=== PATIENT | female | born 1965 ===

== ENCOUNTER → 2020-12-08 10:57 | Outpatient (BNVA) | payer MEDICAID, SELFPAY | PROVIDERS: PCP Internal Medicine; Visit Provider Internal Medicine Cardiovascular Disease | DX: I73.9 Peripheral vascular disease, unspecified (principal); I25.10 Atherosclerotic heart disease of native coronary artery without angina pectoris | CPT/HCPCS: 93005; 99212 ==

== ENCOUNTER → 2020-12-15 09:16 | Outpatient (REF) | payer MEDICAID, SELFPAY ==
--- NOTE | ~2020-12-15 | NM_ITS ---
Exercise Myocardial perfusion study Indication: Atherosclerotic cardiovascular disease to evaluate for myocardial ischemia Technique: The patient was brought in for an exercise perfusion study on 12/15/2020. Patient performed exercise as per Eladio protocol and was injected 25 mCi of sestamibi was given intravenously one target HR was achieved. Images were obtained using the SPECT gamma camera interlaced with the gating device. Images were obtained in supine position. Resting perfusion study was performed on 12/16/2020. Patient was administered 25 mCi of sestamibi intravenously at rest. Images were then obtained in supine position. Images obtained with and without CT attenuation. Total DLP 95 mGy-cm. Images were processed with the software and compared side to side in short axis, horizontal long axis and vertical long axis views. Findings: The stress perfusion study showed non attenuated images show mildly reduced uptake in the septum of the LV myocardium. Remainder of the LV myocardium normally perfused. Suggestion of left ventricle hypertrophy. Attenuation corrected images show mildly reduced uptake in the septum and moderately reduced uptake in the distal septum of the LV myocardium. Remainder of the LV myocardium is normally perfused.. The gated study shows normal LV systolic function with calculated LVEF of 70%. LV cavity is normal in size. The gated study shows normal systolic wall thickening and contraction of all segments. There is no transient ischemic dilation. Resting study shows no change in perfusion compared with stress perfusion study. Gating at rest reveals normal cyst folic wall motion with ejection fraction at 73%. The findings are consistent with no reversible defect suggestive of ischemia.. NM/NM cardiolite stress test Impression: 1. Likely normal myocardial perfusion 2. Gated LVEF is 70% 3. Transient ischemic dilatation not present Stress EKG is equivocal for ischemia
--- NOTE | 2020-12-15 09:30 | CA_ITS ---
Acquisition Time: 2020-12-15 09:31:47 Total Exercise Time: 00:05:32 Test Indications: CAD, SD Medications: Protocol: MICHELLE Max HR: 131 BPM 79% of Pred: 165 BPM Max BP: 116/060 mmHG Max Work Load: 7.0 METS Exercise stress nuclear with Michelle protocol, total of 5 min 32 sec, METS 7.0 TAPHR up to 79 %. ( attenuated by betablocker). Pt denies any anginal sx. EKG with no arrhythmias, no ischemic changes seen during exercise or in recovery, however pt's HR attenuated by betablocker. Nuclear images to follow. Normotensive response to Exercise. Test reviewed with Dr. Montgomery. Referred By: Mathew Titus Overread By: Rox Newby NP
== END ==
LOC: HO.CARD 09:16
PROVIDERS: PCP Internal Medicine; Visit Provider Internal Medicine Cardiovascular Disease
DX: I25.10 Atherosclerotic heart disease of native coronary artery without angina pectoris (principal)
CPT/HCPCS: 78452; 93016; 93017; 93018; A9500

== ENCOUNTER 2020-12-20 13:35 | Outpatient (REF) | payer MEDICAID, SELFPAY ==
--- NOTE | ~2020-12-20 | US_ITS ---
EXAMINATION: NONINVASIVE ASSESSMENT OF THE ARTERIES OF BOTH LOWER EXTREMITIES INCLUDING DREAD AND PVR EXAM CLINICAL INFORMATION: Peripheral vascular disease unspecified COMPARISON: None TECHNIQUE: Ankle pulse volume recordings, ankle pressure measurements and ankle brachial indices were obtained of the lower extremity arterial system bilaterally. The study was performed only at rest. FINDINGS: RIGHT LEG 1. Right Ankle-Brachial Index: 1.09 >0.97-1.25 = normal - no significant arterial disease 0.75-0.96 = mild peripheral arterial disease 0.5-0.74 = moderate peripheral arterial disease <0.50 = severe peripheral arterial disease <0.30 = critical arterial disease 2. Segmental Pressures (mmHg): Ankle: PT 125, DP 119 3. PVR Waveforms: Ankle: Normal LEFT LE. Left Ankle-Brachial Index: 0.98 (higher of the DP/PT) >0.97-1.25 = normal - no significant arterial disease 0.75-0.96 = mild peripheral arterial disease 0.5-0.74 = moderate peripheral arterial disease <0.50 = severe peripheral arterial disease <0.30 = critical arterial disease 2. Segmental Pressures: Ankle: PT 112, DP 113 3. PVR Waveforms: Ankle: Normal US/US DREAD complete IMPRESSION: Normal bilateral ankle brachial indices and PVR waveforms.
== END 2020-12-20 13:36 | disposition home or self-care (01) ==
LOC: HO.US 13:35
PROVIDERS: PCP Internal Medicine; Visit Provider Internal Medicine Cardiovascular Disease
DX: I73.9 Peripheral vascular disease, unspecified (principal)
CPT/HCPCS: 93923

== ENCOUNTER → 2020-12-22 12:29 | Outpatient (BNVA) | payer MEDICAID, SELFPAY | PROVIDERS: PCP Internal Medicine; Visit Provider Internal Medicine Cardiovascular Disease | DX: R09.89 Other specified symptoms and signs involving the circulatory and respiratory systems (principal); I25.10 Atherosclerotic heart disease of native coronary artery without angina pectoris; I73.9 Peripheral vascular disease, unspecified | CPT/HCPCS: 99212 ==

== ENCOUNTER 2021-01-26 13:14 | Outpatient (REF) | payer MEDICAID, SELFPAY ==
--- NOTE | ~2021-01-26 | US_ITS ---
EXAMINATION: US EXTRACRANIAL CAROTID DUPLEX, BILATERAL CLINICAL INFORMATION: Carotid bruit COMPARISON: None TECHNIQUE: Real-time ultrasound and Doppler techniques (integrating B-mode 2-D vascular images, Doppler spectral analysis and color-flow Doppler imaging) were utilized to interrogate the extracranial carotid arteries, the vertebral arteries and proximal subclavian arteries bilaterally. The degree of stenosis is determined by criteria similar to NASCET. FINDINGS: Right Side: 1. There is no atherosclerotic plaque seen in the bifurcation/proximal ICA region. 2. The common carotid artery PSV proximally is 92 cm/s and distally 98 cm/s. 3. The proximal internal carotid artery velocities are 90 cm/s systolic and 34 cm/s diastolic. 4. The proximal external carotid artery PSV is 80 cm/s. 5. The vertebral artery shows antegrade flow. 6. The subclavian artery waveforms are normal. Left Side: 1. There is mild calcified atherosclerotic plaque seen in the bifurcation/proximal ICA region. 2. The common carotid artery PSV proximally is 96 cm/s and distally 100 cm/s. 3. The proximal internal carotid artery velocities are 60 cm/s systolic and 22 cm/s diastolic. 4. The proximal external carotid artery PSV is 139 cm/s. 5. The vertebral artery shows antegrade flow. 6. The subclavian artery waveforms are normal. US/US carotid duplex BI IMPRESSION: 1. RIGHT: Normal right internal carotid artery without atherosclerotic plaque or hemodynamically significant stenosis. 2. LEFT: Minimal, non-hemodynamically significant stenosis of the proximal left internal carotid artery corresponding to a 0-49% stenosis by velocity criteria.
== END 2021-01-26 13:15 | disposition home or self-care (01) ==
LOC: HO.US 13:14
PROVIDERS: PCP Internal Medicine; Visit Provider Internal Medicine
DX: R09.89 Other specified symptoms and signs involving the circulatory and respiratory systems (principal)
CPT/HCPCS: 93880

== ENCOUNTER → 2021-05-15 14:03 | Outpatient (BNVA) | payer MEDICAID, SELFPAY | PROVIDERS: PCP Internal Medicine; Referring Provider Internal Medicine; Visit Provider Internal Medicine Cardiovascular Disease | DX: I65.29 Occlusion and stenosis of unspecified carotid artery (principal); I25.10 Atherosclerotic heart disease of native coronary artery without angina pectoris | CPT/HCPCS: 99212 ==

== ENCOUNTER → 2021-08-07 13:34 | Outpatient (BNVA) | payer MEDICAID, SELFPAY | PROVIDERS: PCP Internal Medicine; Referring Provider Internal Medicine; Visit Provider Internal Medicine Cardiovascular Disease | DX: I25.10 Atherosclerotic heart disease of native coronary artery without angina pectoris (principal); R06.00 Dyspnea, unspecified; I25.2 Old myocardial infarction; F17.200 Nicotine dependence, unspecified, uncomplicated; Z71.6 Tobacco abuse counseling; Z95.818 Presence of other cardiac implants and grafts; Z79.82 Long term (current) use of aspirin | CPT/HCPCS: 93005; 99212 ==

== ENCOUNTER 2021-11-22 15:13 | Outpatient (REF) | payer MEDICAID, SELFPAY ==
--- NOTE | ~2021-11-22 | MM_ITS ---
EXAMINATION: MM SCREENING DIGITAL BREAST TOMOSYNTHESIS, BILATERAL CLINICAL INFORMATION: Screening. Asymptomatic. The lifetime risk of breast cancer based on the Tyrer-Cuzick Model is 16%. COMPARISON: Mammography: 11/27/2019 TECHNIQUE: Digital breast tomosynthesis is performed in both the craniocaudal and mediolateral oblique views along with computer-aided detection (CAD). Synthesized 2D images are generated from the tomosynthesis. FINDINGS: There are scattered areas of fibroglandular density (ACR BI-RADS breast composition Category b). There are no significant masses, abnormal calcifications, or other abnormalities. Parenchymal pattern is similar to prior studies. There are no significant changes. MM/MM tomosynthesis screening BI IMPRESSION: No mammographic evidence of malignancy. ASSESSMENT: BI-RADS 1: Negative RECOMMENDATION: Routine annual mammography screening. This patient's information was entered into a reminder system with a target due date for their next mammogram.
== END 2021-11-22 15:14 | disposition home or self-care (01) ==
LOC: HO.MAMMO 15:13
PROVIDERS: PCP Internal Medicine; Visit Provider Internal Medicine
DX: Z12.31 Encounter for screening mammogram for malignant neoplasm of breast (principal)
CPT/HCPCS: 77063; 77067

== ENCOUNTER 2021-12-04 15:53 | Outpatient (REF) | payer MEDICAID, SELFPAY ==
--- NOTE | 2021-12-04 17:32 | PFT_ITS ---
FLOWS: FEV1 70% of predicted at 1.85 L. FVC 64% of predicted at 2.14 L. FEV1 to FVC ratio of 0.86. No bronchodilator response. LUNG VOLUMES: Total lung capacity 67% of predicted at 3.41 L. Residual volume 64% of predicted at 1.25 L. Slow vital capacity 69% of predicted at 2.16 L. Expiratory reserve volume 68% of predicted at 0.64 L. Diffusion capacity is mildly decreased. IMPRESSION: Moderate restrictive ventilatory defect with no bronchodilator response. Decreased diffusion capacity suggests emphysema. Martin Whitney MD AP/MODL / [id number]
== END 2021-12-04 15:54 | disposition home or self-care (01) ==
LOC: HO.RESP 15:53
PROVIDERS: PCP Internal Medicine; Visit Provider Internal Medicine Cardiovascular Disease
DX: R06.00 Dyspnea, unspecified (principal)
CPT/HCPCS: 94060; 94727; 94729

== ENCOUNTER → 2021-12-07 12:58 | Outpatient (BNVA) | payer MEDICAID, SELFPAY | PROVIDERS: PCP Internal Medicine; Referring Provider Internal Medicine; Visit Provider Internal Medicine Cardiovascular Disease | DX: R06.00 Dyspnea, unspecified (principal); I25.10 Atherosclerotic heart disease of native coronary artery without angina pectoris; I65.29 Occlusion and stenosis of unspecified carotid artery; I25.2 Old myocardial infarction; Z95.5 Presence of coronary angioplasty implant and graft; F17.210 Nicotine dependence, cigarettes, uncomplicated; Z71.6 Tobacco abuse counseling | CPT/HCPCS: 99212 ==

== ENCOUNTER → 2021-12-15 11:13 | Outpatient (BNVA) | payer MEDICAID, SELFPAY | PROVIDERS: PCP Internal Medicine; Visit Provider Internal Medicine Pulmonary Disease | DX: R06.00 Dyspnea, unspecified (principal); J43.9 Emphysema, unspecified | CPT/HCPCS: 99202 ==

== ENCOUNTER → 2022-06-13 12:44 | Outpatient (BNVA) | payer MEDICAID, SELFPAY | PROVIDERS: PCP Internal Medicine; Visit Provider Internal Medicine Cardiovascular Disease | DX: I25.10 Atherosclerotic heart disease of native coronary artery without angina pectoris (principal); I65.29 Occlusion and stenosis of unspecified carotid artery; J43.9 Emphysema, unspecified; Z79.82 Long term (current) use of aspirin | CPT/HCPCS: 93005; 99212 ==

== ENCOUNTER → 2022-07-13 14:04 | Outpatient (BNVA) | payer MEDICAID, SELFPAY | PROVIDERS: PCP Internal Medicine; Visit Provider Internal Medicine Pulmonary Disease | DX: J43.9 Emphysema, unspecified (principal) | CPT/HCPCS: 99212 ==

== ENCOUNTER → 2022-12-10 14:36 | Outpatient (BNVA) | payer MEDICAID, SELFPAY | PROVIDERS: PCP Internal Medicine; Referring Provider Internal Medicine; Visit Provider Internal Medicine Cardiovascular Disease | DX: I20.8 Other forms of angina pectoris (principal); I65.29 Occlusion and stenosis of unspecified carotid artery; I73.9 Peripheral vascular disease, unspecified | CPT/HCPCS: 93005; 99212 ==

== ENCOUNTER 2023-06-04 08:59 | Outpatient (REF) | payer MEDICAID, SELFPAY ==
[2023-06-04 14:29] LABS: MANUAL DIFF FLAG NO
[2023-06-04 14:36] LABS: Basophils Percent Auto 0.3 % (0-2); Eosinophils Absolute Auto 0.3 X10*3/uL (0.0-0.4); Eosinophils Percent Auto 2.9 % (0-4); Hematocrit 50.7 % (37.0-47.0); Hemoglobin 16.3 g/dl (12.0-16.0); Imm Gran Abs Auto 0.02 X10*3/uL (0.00-0.03); Imm Gran Pct Auto 0.2 % (0.0-0.4); Lymphocytes Absolute Auto 2.2 X10*3/uL (1.2-4.9); Lymphocytes Percent Auto 21.9 % (20-40); Mean Corpuscular HGB Conc 32.1 g/dl (31.0-35.0); Mean Corpuscular Hemoglobin 28.4 pg (27.0-33.0); Mean Corpuscular Volume 88.3 fL (80.0-98.0); Mean Platelet Volume 9.7 fL (9.4-12.3); Monocytes Absolute Auto 0.4 X10*3/uL (0.1-1.2); Monocytes Percent Auto 4.4 % (2-11); Neutrophils Percent Auto 70.3 % (45-73); Platelet Count 188 X10*3/uL (160-400); Red Blood Count 5.74 X10*6/uL (4.20-5.50); Red Cell Distribution Width 14.5 % (11.0-16.0)
[2023-06-04 15:01] LABS: Estimated Average Glucose 151 mg/dL; Hemoglobin A1c % 6.9 % (<6.0)
[2023-06-04 16:09] LABS: Alanine Aminotransferase 70 U/L (0-31); Albumin Level 4.4 g/dL (3.5-5.0); Alkaline Phosphatase 102 U/L (39-117); Anion Gap 12 (12-20); Aspartate Amino Transferase 39 U/L (5-31); Bilirubin Total 0.7 mg/dL (0.0-1.0); Blood Urea Nitrogen 12 mg/dL (9-16); Calcium 9.9 mg/dL (8.4-10.2); Carbon Dioxide 25 mmol/L (22-29); Chloride 107 mmol/L (96-108); Cholesterol 124 mg/dL (<200); Estimated Glomerular Filt Rate > 60; Glucose Fasting 153 mg/dL (60-99); HDL Cholesterol 41 mg/dL (>40); LDL Cholesterol Calculated 49 mg/dL (<100); Potassium 4.1 mmol/L (3.3-5.1); Sodium 140 mmol/L (135-145); Triglycerides 171 mg/dL (<150)
== END 2023-06-04 09:00 | disposition home or self-care (01) ==
LOC: HO.CHCLDS 08:59
PROVIDERS: Visit Provider Internal Medicine
DX: E11.59 Type 2 diabetes mellitus with other circulatory complications (principal); Z79.4 Long term (current) use of insulin
CPT/HCPCS: 36415; 80053; 80061; 82043; 82570; 83036; 85025

== ENCOUNTER → 2023-06-18 14:45 | Outpatient (BNV) | payer MEDICAID, SELFPAY | PROVIDERS: Visit Provider Radiology Diagnostic Radiology | DX: Z12.31 Encounter for screening mammogram for malignant neoplasm of breast (principal) | CPT/HCPCS: 77063; 77067 ==

== ENCOUNTER 2023-06-18 14:49 | Outpatient (REF) | payer MEDICAID, SELFPAY | END 2023-06-18 14:50 | disposition home or self-care (01) | LOC: HO.MAMMO 14:49 | PROVIDERS: Visit Provider Internal Medicine | DX: Z12.31 Encounter for screening mammogram for malignant neoplasm of breast (principal) | CPT/HCPCS: 77063; 77067 ==

== ENCOUNTER 2023-08-14 09:29 | Outpatient (AMB) | payer MEDICAID, SELFPAY ==
--- NOTE | 2023-08-14 09:44 | MHC.OFFVIS ---
Intake Vital Signs 08/14/23 09:46 Height 5 ft 4 in Weight 139 lb 5.314 oz BMI 23.9 BP 130/70 Blood Pressure Location Lt brachial Position Sitting Pulse 79 Pulse Source Pulse Oximeter Intake Visit Reasons: F/U Intake Note: f/u feels good Barn Manager Required: Yes Barn Manager Name: caren/cesar Accompanied by: Self / Same As Patient Allergies nuts Allergy (Unknown, Uncoded 12/10/22 14:48) anaphylaxis Seafood Allergy (Unknown, Uncoded 12/10/22 14:48) anaphylaxis Medication List - Last Reconciled 08/14/23 by Mathew Titus MD aspirin (Adult Low Dose Aspirin) 81 mg PO DAILY cholecalciferol (vitamin D3) 25 mcg PO DAILY cholecalciferol (vitamin D3) 25 mcg PO QAM dulaglutide (Trulicity) mg subcut QWEEK empagliflozin (Jardiance) 25 mg PO DAILY gabapentin 600 mg PO TID insulin glargine (Lantus Solostar U-100 Insulin) 10 units subcut BEDTIME insulin lispro (Humalog KwikPen (U-100) Insulin) 28 units subcut TID lancets (TRUEplus Lancets) As directed losartan 25 mg PO DAILY metoprolol tartrate 50 mg PO BID omeprazole 20 mg PO DAILY rosuvastatin 40 mg PO DAILY ticagrelor (Brilinta) 90 mg PO BID umeclidinium 62.5 mcg/actuation (Incruse Ellipta) 1 inh inhalation DAILY HPI HPI Comments History of Present Illness Details Pleasant 57-year-old female here for follow-up. She was seen after she presented to us from [place] where she had anterior wall DE. She was treated with drug-eluting stent. She was doing fine. She had echocardiography which showed normal ejection fraction but basal inferior inferolateral wall were hypokinetic. She is denying any chest discomfort shortness of breath. She is not physically active and does not do any exercise of physical activities. No bleeding issues. She is complaining of leg pain when she walks. Previously she was given pentoxifylline which she has stop. She said this medication was given for ?leg blockages. Old records reviewed as below: 07/13/2019 she underwent cardiac catheterization for anterior ST-elevation DE in [place]. She had a 3.5 x 24 mm synergy drug-eluting stent placed in the proximal left anterior descending artery. Reviewing the angiogram there was nothing mention about other blood vessels in the report sent. She was referred for ankle-brachial index which did not show any abnormality. She also had underwent exercise stress test where she was able to achieve 7 metabolic equivalents workload without symptoms or EKG changes. She underwent carotid duplex because she has carotid bruit. This showed 0-49% stenosis on the left side which was minimal. Right carotid was normal. She continues to smoke. We discussed about stopping smoking because she is complaining of some dyspnea on exertion off and on. She is smoking some cigarettes daily but she is saying is quite variable and depends the stress level. She was referred for PFTs which showed moderate restrictive lung disease as well as emphysema. On follow-up today she is complaining of left flank pain this is exertional and sounds like claudication. On last visit she said that she has stopped using Brilinta but now on follow-up is saying that she never started and has been taking regularly. She has stable angina currently. 08/14/2023: She returns for follow-up. She is going to get eye surgery and dental work. She may need extraction of her too. She is here to. Past whether she can stop Brilinta. She has been on Brilinta for long time and was continued mainly because she has peripheral vascular disease. She can stop the Brilinta for good. I have advised her not to stop the aspirin in the perioperative period unless absolutely necessary she is denying any other symptoms currently. Blood pressure control is good. [facility] Surgical History H/O tubal ligation History of appendectomy Family History Father Diabetes CVD (cardiovascular disease) Mother CVD (cardiovascular disease) HTN (hypertension) Stroke Social History Alcohol intake: former Patient Tobacco Use Status: Current everyday Tobacco user Cigarette Packs Per Day: 0.5 Cigarettes Per Day: 10 Years Smoked: 30 +/- Review of Systems Const Denies chills, Denies fatigue, Denies fever(s), Denies frequent falls, Denies weakness, Denies weight gain and Denies weight loss ENT Denies dizziness Card Denies chest pain, Denies leg edema, Denies lightheadedness, Denies palpitations, Denies dyspnea, Denies dyspnea on exertion, Denies orthopnea and Denies other (loss of consciousness) Resp Denies cough, Denies dyspnea and Denies dyspnea on exertion GI Denies hematochezia and Denies change in stool character Musc Denies abnormal gait, Denies muscle weakness, Denies numbness, Denies radiating pain into limb and Denies tingling Neuro Denies abnormal gait, Denies dizziness, Denies frequent falls, Denies numbness, Denies tingling and Denies weakness Endo Denies fatigue and Denies palpitations Physical Exam Vital Signs: Last Vital Signs Pulse 79 08/14/23 09:46 BP 130/70 08/14/23 09:46 BMI result Body Mass Index 23.9 GENERAL APPEARANCE: in no acute distress, well developed, well nourished. NECK/THYROID: Left carotid bruit, no jugular venous distention. SKIN: no suspicious lesions, warm and dry. HEART: no murmurs, regular rate and rhythm, S1, S2 normal. LUNGS: clear to auscultation bilaterally. ABDOMEN: normal, bowel sounds present, soft, nontender, nondistended. EXTREMITIES: no clubbing, cyanosis, or edema. PERIPHERAL PULSES: equal. NEUROLOGIC: nonfocal, alert and oriented. PSYCH: mood/affect full range. Assessment & Plan Assessment & Plan (1) Stable angina: Code(s): I20.8 - Other forms of angina pectoris (2) Carotid artery stenosis: Code(s): I65.29 - Occlusion and stenosis of unspecified carotid artery (3) Claudication: Comment: She is complaining of leg claudication. She has known history of coronary disease. She is a former smoker. Code(s): I73.9 - Peripheral vascular disease, unspecified Plan 58-year-old female who has peripheral vascular disease and coronary artery disease. Previous LAD stent which was in 2019. She has been on aspirin and Brilinta all along because of peripheral vascular disease. She can stop the Brilinta at this stage. She should continue aspirin on interrupted due to vascular disease. She is intermediate risk for perioperative complications. Ideally she should not stop aspirin for any procedures unless absolutely necessary. Down the line we will consider putting her on Plavix monotherapy as that will be a better option for her given the fact that she has PVD/carotid disease. Thank you for allowing me to participate in the care of your patient. Please feel free to contact me if you have any questions. Coding Level of Care Code Est Pt Level 4 (65856) Diagnoses Stable angina I20.8 Carotid artery stenosis I65.29 Claudication I73.9
[2023-08-14 09:46] VITALS: BP 130/70; PULSE 79; BMI 23.9
== END 2023-08-14 10:11 | disposition home or self-care (01) ==
PROVIDERS: PCP Internal Medicine; Visit Provider Internal Medicine Cardiovascular Disease
DX: I20.8 Other forms of angina pectoris (principal); I65.29 Occlusion and stenosis of unspecified carotid artery; I73.9 Peripheral vascular disease, unspecified
CPT/HCPCS: 99214

== ENCOUNTER → 2023-08-14 09:29 | Outpatient (BNVA) | payer MEDICAID, SELFPAY | PROVIDERS: PCP Internal Medicine; Visit Provider Internal Medicine Cardiovascular Disease | DX: I20.89 Other forms of angina pectoris (principal); I73.9 Peripheral vascular disease, unspecified; I65.29 Occlusion and stenosis of unspecified carotid artery | CPT/HCPCS: 99212 ==

== ENCOUNTER 2024-06-26 08:42 | Outpatient (REF) | payer MEDICAID, SELFPAY ==
[2024-06-26 14:11] LABS: MANUAL DIFF FLAG NO
[2024-06-26 14:16] LABS: Basophils Absolute Auto 0.1 X10*3/uL (0.0-0.2); Basophils Percent Auto 0.4 % (0-2); Eosinophils Absolute Auto 0.3 X10*3/uL (0.0-0.4); Eosinophils Percent Auto 2.7 % (0-4); Hematocrit 43.1 % (37.0-47.0); Hemoglobin 13.8 g/dl (12.0-16.0); Imm Gran Abs Auto 0.03 X10*3/uL (0.00-0.03); Imm Gran Pct Auto 0.3 % (0.0-0.4); Lymphocytes Absolute Auto 2.4 X10*3/uL (1.2-4.9); Mean Corpuscular Hemoglobin 27.3 pg (27.0-33.0); Mean Corpuscular Volume 85.3 fL (80.0-98.0); Mean Platelet Volume 9.5 fL (9.4-12.3); Monocytes Absolute Auto 0.6 X10*3/uL (0.1-1.2); Monocytes Percent Auto 5.1 % (2-11); Neutrophils Percent Auto 70.5 % (45-73); Platelet Count 247 X10*3/uL (160-400); Red Blood Count 5.05 X10*6/uL (4.20-5.50); Red Cell Distribution Width 14.7 % (11.0-16.0); White Blood Count 11.3 X10*3/uL (4.8-10.8)
[2024-06-26 14:38] LABS: Estimated Average Glucose 143 mg/dL; Hemoglobin A1C 159.5434 umol/L; Hemoglobin A1c % 6.6 % (<6.0); Total Hemoglobin (HGBA1C) 3305.9958 umol/L
[2024-06-26 14:45] LABS: Alanine Aminotransferase 27 U/L (0-31); Albumin Level 4.1 g/dL (3.5-5.0); Alkaline Phosphatase 95 U/L (39-117); Anion Gap 9 (12-20); Aspartate Amino Transferase 29 U/L (5-31); Bilirubin Total 0.4 mg/dL (0.0-1.0); Blood Urea Nitrogen 11 mg/dL (9-16); Calcium 9.5 mg/dL (8.4-10.2); Carbon Dioxide 27 mmol/L (22-29); Chloride 109 mmol/L (96-108); Cholesterol 129 mg/dL (<200); Estimated Glomerular Filt Rate > 60; Glucose Random 92 mg/dL (60-115); HDL Cholesterol 42 mg/dL (>40); LDL Cholesterol Calculated 70 mg/dL (<100); Potassium 4.1 mmol/L (3.3-5.1); Sodium 141 mmol/L (135-145); Total Protein 7.4 g/dL (6.5-8.0); Triglycerides 86 mg/dL (<150)
[2024-06-26 14:55] LABS: Creatinine Urine 70.63 mg/dL; Microalbum/Creatinine Ratio Ur 99.1 ug/mg cr (<30)
[2024-06-26 15:03] LABS: TSH reflex Free T4 1.22 uIU/mL (0.32-4.0)
== END 2024-06-26 08:43 | disposition home or self-care (01) ==
LOC: HO.CHCLDS 08:42
PROVIDERS: Visit Provider Internal Medicine
DX: E11.59 Type 2 diabetes mellitus with other circulatory complications (principal); Z79.4 Long term (current) use of insulin
CPT/HCPCS: 36415; 80053; 80061; 82043; 82570; 83036; 84443; 85025

== ENCOUNTER 2024-08-17 12:40 | Outpatient (AMB) | payer MEDICAID, SELFPAY ==
[2024-08-17 12:53] VITALS: BP 130/66; PULSE 85; BMI 24.6
--- NOTE | 2024-08-17 12:53 | MHC.OFFVIS ---
Vital Signs 08/17/24 12:53 Height 5 ft 4 in Weight 143 lb 4.807 oz BMI 24.6 BP 130/66 Blood Pressure Location Lt brachial Position Sitting Pulse 85 Pulse Source Monitor Intake Visit Reasons: 1yr f/up/w ekg Intake Note: 1 yr f/up Preparation Room Manager Required: Yes Preparation Room Manager Language: Industrial Photographer Name: [id number] Accompanied by: Self / Same As Patient Allergies nuts Allergy (Unknown, Uncoded 12/10/22 14:48) anaphylaxis Seafood Allergy (Unknown, Uncoded 12/10/22 14:48) anaphylaxis Medication List - Last Reconciled 08/17/24 by Mathew Titus MD aspirin (Adult Low Dose Aspirin) 81 mg PO DAILY cholecalciferol (vitamin D3) 25 mcg PO DAILY dulaglutide (Trulicity) mg subcut QWEEK empagliflozin (Jardiance) 25 mg PO DAILY gabapentin 600 mg PO TID insulin glargine (Lantus Solostar U-100 Insulin) 10 units subcut BEDTIME lancets (TRUEplus Lancets) As directed losartan 25 mg PO DAILY metoprolol tartrate 50 mg PO BID omeprazole 20 mg PO DAILY rosuvastatin 40 mg PO DAILY ticagrelor 90 mg PO BID umeclidinium 62.5 mcg/actuation (Incruse Ellipta) 1 inh PO DAILY HPI Comments Details: Pleasant 57-year-old female here for follow-up. She was seen after she presented to us from [place] where she had anterior wall ID. She was treated with drug-eluting stent. She was doing fine. She had echocardiography which showed normal ejection fraction but basal inferior inferolateral wall were hypokinetic. She is denying any chest discomfort shortness of breath. She is not physically active and does not do any exercise of physical activities. No bleeding issues. She is complaining of leg pain when she walks. Previously she was given pentoxifylline which she has stop. She said this medication was given for ?leg blockages. Old records reviewed as below: 07/13/2019 she underwent cardiac catheterization for anterior ST-elevation ID in [place]. She had a 3.5 x 24 mm synergy drug-eluting stent placed in the proximal left anterior descending artery. Reviewing the angiogram there was nothing mention about other blood vessels in the report sent. She was referred for ankle-brachial index which did not show any abnormality. She also had underwent exercise stress test where she was able to achieve 7 metabolic equivalents workload without symptoms or EKG changes. She underwent carotid duplex because she has carotid bruit. This showed 0-49% stenosis on the left side which was minimal. Right carotid was normal. She continues to smoke. We discussed about stopping smoking because she is complaining of some dyspnea on exertion off and on. She is smoking some cigarettes daily but she is saying is quite variable and depends the stress level. She was referred for PFTs which showed moderate restrictive lung disease as well as emphysema. On follow-up today she is complaining of left flank pain this is exertional and sounds like claudication. On last visit she said that she has stopped using Brilinta but now on follow-up is saying that she never started and has been taking regularly. She has stable angina currently. 08/14/2023: She returns for follow-up. She is going to get eye surgery and dental work. She may need extraction of her too. She is here to. Past whether she can stop Brilinta. She has been on Brilinta for long time and was continued mainly because she has peripheral vascular disease. She can stop the Brilinta for good. I have advised her not to stop the aspirin in the perioperative period unless absolutely necessary she is denying any other symptoms currently. Blood pressure control is good. 08/17/2024: She is here for follow-up. No chest pain or shortness of breath. She continues to smoke unfortunately. She was advised previously to stop the Brilinta intake aspirin monotherapy. She continues to take aspirin and Brilinta. She has peripheral vascular disease. Unfortunately continues to smoke. [facility] Surgical History H/O tubal ligation History of appendectomy Family History Father Diabetes CVD (cardiovascular disease) Mother CVD (cardiovascular disease) HTN (hypertension) Stroke Social History Alcohol intake: former Patient Tobacco Use Status: Current everyday Tobacco user Cigarette Packs Per Day: 0.5 Cigarettes Per Day: 10 Years Smoked: 30 +/- Review of Systems Const Denies chills, Denies fatigue, Denies fever(s), Denies frequent falls, Denies weakness, Denies weight gain and Denies weight loss ENT Denies dizziness Card Denies chest pain, Denies leg edema, Denies lightheadedness, Denies palpitations, Denies dyspnea and Denies dyspnea on exertion Resp Denies cough, Denies dyspnea and Denies dyspnea on exertion GI Denies hematochezia Musc Denies abnormal gait, Denies muscle weakness, Denies numbness, Denies radiating pain into limb and Denies tingling Neuro Denies abnormal gait, Denies dizziness, Denies frequent falls, Denies numbness, Denies tingling and Denies weakness Endo Denies fatigue and Denies palpitations Physical Exam Vital Signs: Last Vital Signs Pulse 85 08/17/24 12:53 BP 130/66 08/17/24 12:53 BMI result Body Mass Index 24.6 GENERAL APPEARANCE: in no acute distress, well developed, well nourished. NECK/THYROID: Left carotid bruit, no jugular venous distention. SKIN: no suspicious lesions, warm and dry. HEART: no murmurs, regular rate and rhythm, S1, S2 normal. LUNGS: clear to auscultation bilaterally. ABDOMEN: normal, bowel sounds present, soft, nontender, nondistended. EXTREMITIES: no clubbing, cyanosis, or edema. PERIPHERAL PULSES: equal. NEUROLOGIC: nonfocal, alert and oriented. PSYCH: mood/affect full range. Office Procedures EKG Details: Sinus rhythm 85 beats per minute, normal axis, normal ECG, QTC 402 milliseconds. [id number], Complete Assessment & Plan Assessment & Plan (1) Stable angina: Code(s): I20.8 - Other forms of angina pectoris Category: Medical (2) Claudication: Comment: She is complaining of leg claudication. She has known history of coronary disease. She is a former smoker. Code(s): I73.9 - Peripheral vascular disease, unspecified Category: Medical (3) PVD (peripheral vascular disease): Code(s): I73.9 - Peripheral vascular disease, unspecified Category: Medical Plan Pleasant 59 year female who is here for follow-up. She has known history of coronary artery disease with previous LAD PCI. She has been on aspirin and Brilinta and was treated with long-term tab due to known peripheral vascular disease. On last visit we advised her to stop the Brilinta and take aspirin only. She has known peripheral vascular disease with claudication. She also has carotid disease. I have advised her to stop the Brilinta and start Xarelto 2.5 mg twice a day. She will continue the baby aspirin with that. We discussed again about smoking cessation. Follow-up in 6 months. Thank you for allowing me to participate in the care of your patient. Please feel free to contact me if you have any questions. Medications: New rivaroxaban (Xarelto) 2.5 mg PO BID 60 tabs 6RF I73.9 - Peripheral vascular disease, unspecified Coding Level of Care Code Est Pt Level 4 (43054) Diagnoses Stable angina I20.8 Claudication I73.9 PVD (peripheral vascular disease) I73.9 CPT Codes EKG - CPT: 80334-[id number], Complete ([id number])
== END 2024-08-17 13:32 | disposition home or self-care (01) ==
PROVIDERS: PCP Internal Medicine; Visit Provider Internal Medicine Cardiovascular Disease
DX: I20.89 Other forms of angina pectoris (principal); I73.9 Peripheral vascular disease, unspecified
CPT/HCPCS: 93010; 99214

== ENCOUNTER → 2024-08-17 12:40 | Outpatient (BNVA) | payer MEDICAID, SELFPAY | PROVIDERS: PCP Internal Medicine; Visit Provider Internal Medicine Cardiovascular Disease | DX: I20.89 Other forms of angina pectoris (principal); I73.9 Peripheral vascular disease, unspecified; F17.210 Nicotine dependence, cigarettes, uncomplicated | CPT/HCPCS: 93005; 99212 ==

== ENCOUNTER 2025-02-22 08:38 | Outpatient (REF) | payer MEDICAID, SELFPAY ==
--- OUTSIDE RECORDS SUMMARY | 2025-02-22 08:47 | XMS_ITS | Encounter Summary ---
Author Organization [employer] Address [address] [place] [address] 7 [place] [address] Care Team Providers Care Inspector Pawnshop Detail Name Role Phone Dillon Thomson MD Primary Care Prov ider Encounter Details Date Type Department Care Team (Late st Contact Info) Description 01/21/2023 Orders Only [facility] [address] [place] [address] Desiree Shaver LPN Social History Tobacco Use Types Packs/Day Years Used Date Smoking Tobacco: Never Assessed Comments Unknown Sex and Gender Information Value Date Recorded Sex Assigned at Female 07/16/2022 10:36 AM EDT Legal Sex Female 10:36 AM EDT Gender Identity Female 07/16/2022 10:36 AM EDT Sexual Orientation Straight 07/16/2022 10 :36 AM EDT documented as of this encounter Plan of Treatment Upcoming Encounters Date Type Department Care Team (Late st Contact Info) Description 06/07/2025 2:30 PM EDT Office Visit [facility] [address] [place] [address] Dillon Thomson MD [address] [place] [address] documented as of this encounter Procedures Procedure Name Priority Date/Time Associated Diagnosis Comments ALBUMIN, RANDOM URINE W/CREATININE Routine 06/04/2023 9:10 AM EDT COMPREHENSIVE METABOLIC PANEL, FASTING Routine 06/04/2023 9:05 AM EDT documented in this encounter Results * (ABNORMAL) Albumin, Random Urine W/Creatinine (06/04/2023 9:10 AM EDT) Creatinine, Urine 53.80 mg/dL [facility] Microalbumin Urine 49.0 mg/L [facility] Microalbum Creatinine Ratio Ur 91.0(H) <30 ug/mg cr [facility] Comment:Albumin/Creatinine R atio Reference Ranges: Normal: < 30 ug/mg creatinine Microalbuminuria: 30 - 300 ug/mg creatinineClinical Albuminuria: > 300 ug/mg creatinine 06/04/2023 9:10 AM EDT 06/04/2023 2:41 PM EDT us Dillon Sanders MD LAB URINE ORDERABL ES Final Result [facility] [address] [place] [address] [phone] * (ABNORMAL) Comprehensive Metabolic Panel, Fasting (06/04/2023 9:05 AM EDT) Sodium 140 135 - 145 mmol/L [facility] Potassium 4.1 3.3 - 5.1 mmol/L [facility] Chloride 107 96 - 108 mmol/L [facility] Carbon Dioxide 25 22 - 29 mmol/L [facility] Anion Gap 12 12 - 20 [facility] Urea Nitrogen (BUN) 12 9 - 16 mg/dL [facility] Creatinine, Serum 0.69 0.5 - 1.4 mg/dL [facility] Estimated Glomerular Filt Rate >60 [facility] Comment:NOTE: For -Am erican individuals, multiply the result by 1.210.Chronic Kidney Disease: Estimated GFR < 60 mL/min/1.18d0Nlsmms Kidney Disease: Estimated GFR < 15 mL/min/1.73m2 Glucose Fasting 153(H) 60 - 99 mg/dL [facility] Comment:A fasting glucose of 126 mg/dl or greater on more than oneoccasion is considered diagnostic of diabetes. Calcium 9.9 8.4 - 10.2 mg/dL [facility] Bilirubin, Total 0.7 0.0 - 1.0 mg/dL [facility] Aspartate Amino Transferase 39(H) 5 - 31 U/L [facility] Alanine Aminotransferase 70(H) 0 - 31 U/L [facility] Total Protein 8.0 6.5 - 8.0 g/dL [facility] Albumin Level 4.4 3.5 - 5.0 g/dL [facility] Alkaline Phosphatase 102 39 - 117 U/L [facility] 06/04/2023 9:05 AM EDT 06/04/2023 2:20 PM EDT us Dillon Sanders MD LAB BLOOD ORDERABL ES Final Result [facility] [address] [place] [phone] documented in this encounter Visit Diagnoses Not on filedocumented in this encounter Care Teams Inspector Pawnshop Detail Relationship Specialty Start Date End Date Dillon Thomson MD [address] [place] [phone] PCP - General Internal Medicine 10/13/19 Sola Fields Car PusherMacadam Raker 10/22/23 documented as of this encounter
[2025-02-22 14:12] LABS: MANUAL DIFF FLAG NO
[2025-02-22 14:32] LABS: Basophils Absolute Auto 0.1 X10*3/uL (0.0-0.2); Basophils Percent Auto 0.6 % (0-2); Eosinophils Absolute Auto 0.2 X10*3/uL (0.0-0.4); Eosinophils Percent Auto 2.4 % (0-4); Hematocrit 39.4 % (37.0-47.0); Hemoglobin 11.8 g/dl (12.0-16.0); Imm Gran Abs Auto 0.05 X10*3/uL (0.00-0.03); Imm Gran Pct Auto 0.5 % (0.0-0.4); Lymphocytes Absolute Auto 2.6 X10*3/uL (1.2-4.9); Lymphocytes Percent Auto 25.8 % (20-40); Mean Corpuscular HGB Conc 29.9 g/dl (31.0-35.0); Mean Corpuscular Hemoglobin 21.6 pg (27.0-33.0); Mean Platelet Volume 9.2 fL (9.4-12.3); Monocytes Absolute Auto 0.5 X10*3/uL (0.1-1.2); Monocytes Percent Auto 5.2 % (2-11); Neutrophils Absolute Auto 6.6 x10*3/uL (2.0-8.3); Neutrophils Percent Auto 65.5 % (45-73); Platelet Count 336 X10*3/uL (160-400); Red Blood Count 5.47 X10*6/uL (4.20-5.50); Red Cell Distribution Width 18.6 % (11.0-16.0); White Blood Count 10.1 X10*3/uL (4.8-10.8)
[2025-02-22 14:45] LABS: Estimated Average Glucose 197 mg/dL; Hemoglobin A1c % 8.5 % (<6.0)
[2025-02-22 14:55] LABS: Alanine Aminotransferase 33 U/L (0-31); Albumin Level 4.4 g/dL (3.5-5.0); Alkaline Phosphatase 91 U/L (39-117); Anion Gap 11 (12-20); Aspartate Amino Transferase 46 U/L (5-31); Bilirubin Total 0.3 mg/dL (0.0-1.0); Blood Urea Nitrogen 14 mg/dL (9-16); Calcium 9.1 mg/dL (8.4-10.2); Carbon Dioxide 23 mmol/L (22-29); Chloride 105 mmol/L (96-108); Cholesterol 127 mg/dL (<200); Estimated Glomerular Filt Rate > 60; Glucose Random 148 mg/dL (60-115); HDL Cholesterol 36 mg/dL (>40); LDL Cholesterol Calculated 56 mg/dL (<100); Potassium 4.2 mmol/L (3.3-5.1); Sodium 135 mmol/L (135-145); Total Protein 7.8 g/dL (6.5-8.0); Triglycerides 179 mg/dL (<150)
== END 2025-02-22 08:39 | disposition home or self-care (01) ==
LOC: HO.CHCLDS 08:38
PROVIDERS: Visit Provider Internal Medicine
DX: Z79.4 Long term (current) use of insulin (principal); E11.59 Type 2 diabetes mellitus with other circulatory complications
CPT/HCPCS: 36415; 80053; 80061; 83036; 85025

== ENCOUNTER 2025-03-09 14:06 | Outpatient (REF) | payer MEDICAID, SELFPAY ==
--- OUTSIDE RECORDS SUMMARY | 2025-03-09 17:12 | XMS_ITS | Encounter Summary ---
Author Organization [employer] Address [address] [place] [address] 7 [place] [address] Care Team Providers Care District Administrator Name Role Phone Dillon Thomson MD Primary Care Prov ider Encounter Details Date Type Department Care Team (Late st Contact Info) Description 01/21/2023 Orders Only [facility] [address] [place] [address] Desiree Shaver LPN Social History Tobacco Use Types Packs/Day Years Used Date Smoking Tobacco: Never Assessed Comments Unknown Sex and Gender Information Value Date Recorded Sex Assigned at Female 07/16/2022 10:36 AM EDT Legal Sex Female 10:36 AM EDT Gender Identity Female 07/16/2022 10:36 AM EDT Sexual Orientation Choose not to disclose 2024 1:47 PM EDT documented as of this encounter Plan of Treatment Upcoming Encounters Date Type Department Care Team (Late st Contact Info) Description 06/07/2025 2:30 PM EDT Office Visit [facility] [address] [place] [address] Dillon Thomson MD [address] [place] [address] documented as of this encounter Procedures Procedure Name Priority Date/Time Associated Diagnosis Comments ALBUMIN, RANDOM URINE W/CREATININE Routine 06/04/2023 9:10 AM EDT COMPREHENSIVE METABOLIC PANEL, FASTING Routine 06/04/2023 9:05 AM EDT documented in this encounter Results * (ABNORMAL) Albumin, Random Urine W/Creatinine (06/04/2023 9:10 AM EDT) Creatinine, Urine 53.80 mg/dL [facility] Microalbumin Urine 49.0 mg/L [facility] Microalbum Creatinine Ratio Ur 91.0(H) <30 ug/mg cr [facility] Comment:Albumin/Creatinine R atio Reference Ranges: Normal: < 30 ug/mg creatinine Microalbuminuria: 30 - 300 ug/mg creatinineClinical Albuminuria: > 300 ug/mg creatinine 06/04/2023 9:10 AM EDT 06/04/2023 2:41 PM EDT us Dillon Sanders MD LAB URINE ORDERABL ES Final Result [facility] [address] [place] [phone] * (ABNORMAL) Comprehensive Metabolic Panel, Fasting (06/04/2023 9:05 AM EDT) Sodium 140 135 - 145 mmol/L [facility] Potassium 4.1 3.3 - 5.1 mmol/L [facility] Chloride 107 96 - 108 mmol/L [facility] Carbon Dioxide 25 22 - 29 mmol/L [facility] Anion Gap 12 12 - 20 [facility] Urea Nitrogen (BUN) 12 9 - 16 mg/dL [facility] Creatinine, Serum 0.69 0.5 - 1.4 mg/dL [facility] Estimated Glomerular Filt Rate >60 [facility] Comment:NOTE: For -Am erican individuals, multiply the result by 1.210.Chronic Kidney Disease: Estimated GFR < 60 mL/min/1.74g5Ksoonj Kidney Disease: Estimated GFR < 15 mL/min/1.73m2 Glucose Fasting 153(H) 60 - 99 mg/dL [facility] Comment:A fasting glucose of 126 mg/dl or greater on more than oneoccasion is considered diagnostic of diabetes. Calcium 9.9 8.4 - 10.2 mg/dL [facility] Bilirubin, Total 0.7 0.0 - 1.0 mg/dL [facility] Aspartate Amino Transferase 39(H) 5 - 31 U/L [facility] Alanine Aminotransferase 70(H) 0 - 31 U/L [facility] Total Protein 8.0 6.5 - 8.0 g/dL [facility] Albumin Level 4.4 3.5 - 5.0 g/dL [facility] Alkaline Phosphatase 102 39 - 117 U/L [facility] 06/04/2023 9:05 AM EDT 06/04/2023 2:20 PM EDT us Dillon Sanders MD LAB BLOOD ORDERABL ES Final Result [facility] [address] [place] [phone] documented in this encounter Visit Diagnoses Not on filedocumented in this encounter Care Teams District Administrator Relationship Specialty Start Date End Date Dillon Thomson MD [address] [place] [phone] PCP - General Internal Medicine 10/13/19 Sola Fields Tacker Elastic BandProperty Field Adjuster 10/22/23 documented as of this encounter
[2025-03-12 15:02] LABS: HPV Genotype 16 Negative (Negative); HPV Genotype 18 Negative (Negative); HPV High Risk Negative (Negative)
== END 2025-03-09 14:07 | disposition home or self-care (01) ==
LOC: HO.CHCLNP 14:06
PROVIDERS: Visit Provider Family Medicine
DX: Z12.4 Encounter for screening for malignant neoplasm of cervix (principal); N30.01 Acute cystitis with hematuria
CPT/HCPCS: 87086; 87088; 87186; 87626; 88175

== ENCOUNTER 2025-03-26 14:00 | Outpatient (REF) | payer MEDICAID, SELFPAY ==
--- NOTE | ~2025-03-26 | MM_ITS ---
EXAMINATION: MM SCREENING DIGITAL BREAST TOMOSYNTHESIS, BILATERAL CLINICAL INFORMATION: Screening. Asymptomatic. COMPARISON: Mammography: Comparison is made with available priors TECHNIQUE: Digital breast mammography with tomosynthesis is performed in both the craniocaudal and mediolateral oblique views along with computer-aided detection (CAD). FINDINGS: There are scattered areas of fibroglandular density (ACR BI-RADS breast composition Category b). There are no significant masses, abnormal calcifications, or other abnormalities. MM/MM tomosynthesis screening BI IMPRESSION: No mammographic evidence of malignancy. ASSESSMENT: BI-RADS BI-RADS 1 - Negative RECOMMENDATION: Routine annual mammography screening. 1 year F/U This examination should not preclude the clinical evaluation of a suspicious palpable abnormality. This patient's information was entered into a reminder system with a target due date for their next mammogram. Electronically signed by: Naty Valdivia DO 04/09/2025 02:28 PM EDT
--- OUTSIDE RECORDS SUMMARY | 2025-03-26 14:05 | XMS_ITS | Clinical Summary ---
Author Organization [facility] Address [address] [facility] [address] [place] [address] Phone Care Team Providers Care Belt Brander Name Role Phone Dillon Meléndez Primary Care Provider Medications acetaminophen (TYLENOL) 500 MG tablet Take 1 tablet by mouth in the morning and 1 tablet at noon and 1 tablet in the evening and 1 tablet before bedtime. 2 Active Aspirin Adult Low Strength 81 MG EC tablet Take 81 mg by mouth every morning 3 Active cholecalciferol (VITAMIN D-3) 25 MCG (1000 UT) capsule Take 1 tablet by mouth in the morning. 2 Active Dulaglutide (Trulicity) 3 MG/0.5ML solution pen-injector Inject 0.5 mL under the skin every 7 (seven) days 3 Active Empagliflozin (Jardiance) 25 MG tablet Take 25 mg by mouth 1 (one) time each day in the morning 2 Active EPINEPHrine (EPIPEN) 0.3 MG/0.3ML injection syringe 0.3 mg if needed 3 Active gabapentin (NEURONTIN) 600 MG tablet Take 600 mg by mouth in the morning and 600 mg at noon and 600 mg in the evening. 3 Active insulin glargine (Lantus SoloStar) 100 UNIT/ML injection Inject 20 Units under the skin every night 3 Active Insulin Lispro, 1 Unit Dial, 100 UNIT/ML solution pen-injector Inject 5 Units under the skin in the morning and 5 Units at noon and 5 Units in the evening. Inject before meals. 2 Active lidocaine-prilo magi (EMLA) cream Apply topically if needed 1 Active losartan (COZAAR) 25 MG tablet Take 25 mg by mouth every morning 3 Active metoprolol tartrate (LOPRESSOR) 50 MG tablet Take 50 mg by mouth in the morning and 50 mg in the evening. 1 Active omeprazole (PriLOSEC) [address] capsule Take 20 mg by mouth 1 (one) time each day in the morning 3 Active rosuvastatin (CRESTOR) 40 MG tablet Take 40 mg by mouth 1 (one) time each day 3 Active spironolactone (ALDACTONE) 25 MG tablet Take 25 mg by mouth in the morning and 25 mg in the evening. 3 Active Brilinta 90 MG tablet Take 90 mg by mouth in the morning and 90 mg in the evening. 3 Active Incruse Ellipta 62.5 MCG/ACT aerosol powder Inhale 1 puff 1 (one) time each day 3 Active Active Problems Problem Noted Date Diagnosed Date Proteinuria, not otherwise specified 09/19/2023 Diabetes mellitus, not otherwise specified 09/19 Hypertension 09/19/2023 Coronary arteriosclerosis, not otherwise specifi ed 09/19/2023 Resolved Problems Problem Noted Date Diagnosed Date Resolved Date Chronic kidney disease, stage 2 (mild) 09/19/2023 09/19/2023 Social History Tobacco Use Types Packs/Day Years Used Date Smoking Tobacco: Never Assessed Comments Unknown Sex and Gender Information Value Date Recorded Sex Assigned at Not on file Legal Sex Female 8:55 AM EDT Gender Identity Not on file Sexual Orientation Not on file Plan of Treatment Health Maintenance Due Date Last Done Comments Breast Cancer Screening 1965 Hepatitis B Vaccine (1 of 3 - 19+ 3-dose series) 1984 Colorectal Cancer Screening: Annual FOBT 2014 Colorectal Cancer Screening: Colonoscopy 2014 Colorectal Cancer Screening: Sigmoidoscopy 2014 Diabetes: Ophthalmology Exam 07/16/2023 Diabetes: Pedal Pulse Checked 07/16/2023 Diabetes: Sensory Foot Exam 07/16/2023 Diabetes: Visual Foot Exam 07/16/2023 Diabetes: Hemoglobin A1C 09/03/2023 06/04/2023 Influenza Vaccine (#1) 2025 06/10/2023, 2021 Pneumococcal Vaccine: 50+ Years Completed Pneumococcal Vaccine: Peds ( 0 to 5 Years) and At-Risk Patients (6 to 49 Years) Discontinued 06/10/2023 Insurance Medicaid [place] Medicaid [place] Care Teams Belt Brander Relationship Specialty Start Date End Date Dillon Meléndez: [phone] PCP - General Internal Medicine 07/16/23
--- OUTSIDE RECORDS SUMMARY | 2025-03-26 14:05 | XMS_ITS | Encounter Summary ---
Author Organization [employer] Address [address] [place] [address] 7 [place] [address] Care Team Providers Care Production Statistical Clerk Name Role Phone Dillon Thomson MD Primary Care Prov ider Encounter Details Date Type Department Care Team (Late st Contact Info) Description 01/21/2023 Orders Only [facility] [address] [place] [address] Desiree Shaver LPN Social History Tobacco Use [...] Description 06/07/2025 2:30 PM EDT Office Visit [facility] [address] [place] [address] Dillon Thomson MD [address] [place] [address] documented as of this encounter Procedures Procedure Name Priority Date/Time Associated Diagnosis Comments ALBUMIN, RANDOM URINE W/CREATININE Routine 06/04/2023 9:10 AM EDT COMPREHENSIVE METABOLIC PANEL, FASTING Routine 06/04/2023 9:05 AM EDT documented in this encounter Results * (ABNORMAL) Albumin, Random Urine W/Creatinine (06/04/2023 9:10 AM EDT) Creatinine, Urine 53.80 mg/dL [facility] Microalbumin Urine 49.0 mg/L [facility] Microalbum Creatinine Ratio Ur 91.0(H) <30 ug/mg cr [facility] Comment:Albumin/Creatinine R atio Reference Ranges: Normal: < 30 ug/mg creatinine Microalbuminuria: 30 - 300 ug/mg creatinineClinical Albuminuria: > 300 ug/mg creatinine 06/04/2023 9:10 AM EDT 06/04/2023 2:41 PM EDT us Dillon Sanders MD LAB URINE ORDERABL ES Final Result [facility] [address] [place] [phone] * (ABNORMAL) Comprehensive Metabolic Panel, Fasting (06/04/2023 9:05 AM EDT) Sodium 140 135 - 145 mmol/L [facility] Potassium 4.1 3.3 - 5.1 mmol/L [facility] Chloride 107 96 - 108 mmol/L [facility] Carbon Dioxide 25 22 - 29 mmol/L [facility] Anion Gap 12 12 - 20 [facility] Urea Nitrogen (BUN) 12 9 - 16 mg/dL [facility] Creatinine, Serum 0.69 0.5 - 1.4 mg/dL [facility] Estimated Glomerular Filt Rate >60 [facility] Comment:NOTE: For -Am erican individuals, multiply the result by 1.210.Chronic Kidney Disease: Estimated GFR < 60 mL/min/1.43s3Mppsve Kidney Disease: Estimated GFR < 15 mL/min/1.73m2 Glucose Fasting 153(H) 60 - 99 mg/dL [facility] Comment:A fasting glucose of 126 mg/dl or greater on more than oneoccasion is considered diagnostic of diabetes. Calcium 9.9 8.4 - 10.2 mg/dL [facility] Bilirubin, Total 0.7 0.0 - 1.0 mg/dL [facility] Aspartate Amino Transferase 39(H) 5 - 31 U/L [facility] Alanine Aminotransferase 70(H) 0 - 31 U/L [facility] Total Protein 8.0 6.5 - 8.0 g/dL [facility] Albumin Level 4.4 3.5 - 5.0 g/dL [facility] Alkaline Phosphatase 102 39 - 117 U/L [facility] 06/04/2023 9:05 AM EDT 06/04/2023 2:20 PM EDT us Dillon Sanders MD LAB BLOOD ORDERABL ES Final Result [facility] [address] [place] [phone] documented in this encounter Visit Diagnoses Not on filedocumented in this encounter Care Teams Production Statistical Clerk Relationship Specialty Start Date End Date Dillon Thomson MD [address] [place] [phone] PCP - General Internal Medicine 10/13/19 Sola Fields Stamp AnalystBlade Boner 10/22/23 documented as of this encounter
== END 2025-03-26 14:01 | disposition home or self-care (01) ==
LOC: HO.MAMMO 14:00
PROVIDERS: Visit Provider Internal Medicine
DX: Z12.31 Encounter for screening mammogram for malignant neoplasm of breast (principal)
CPT/HCPCS: 77063; 77067

== ENCOUNTER → 2025-03-26 14:30 | Outpatient (BNV) | payer MEDICAID, SELFPAY | PROVIDERS: Visit Provider Internal Medicine | DX: Z12.31 Encounter for screening mammogram for malignant neoplasm of breast (principal) | CPT/HCPCS: 77063; 77067 ==

== ENCOUNTER 2025-09-07 12:23 | Outpatient (AMB) | payer MEDICAID, SELFPAY ==
--- NOTE | 2025-09-07 12:49 | MHC.OFFVIS ---
Vital Signs 09/07/25 12:50 Height 5 ft 4 in Weight 141 lb 1.533 oz BMI 24.2 BP 120/52 L Blood Pressure Location Lt brachial Position Sitting Pulse 90 Pulse Source Monitor Intake Visit Reasons: r/s 6 mth f/up Tracer Powder Blender Required: Yes Tracer Powder Blender Language: Sugar [place] Manager Name: linn [id number] nelsin Allergies nuts Allergy (Unknown, Uncoded 09/07/25 12:55) anaphylaxis Seafood Allergy (Unknown, Uncoded 09/07/25 12:55) anaphylaxis Medication List - Last Reconciled 09/07/25 by RAFAELA Pacheco aspirin (Adult Low Dose Aspirin) 81 mg PO DAILY cholecalciferol (vitamin D3) 25 mcg PO DAILY dulaglutide (Trulicity) mg subcut QWEEK empagliflozin (Jardiance) 25 mg PO DAILY gabapentin 600 mg PO TID insulin glargine (Lantus Solostar U-100 Insulin) 10 units subcut BEDTIME lancets (TRUEplus Lancets) As directed losartan 25 mg PO DAILY metoprolol tartrate 50 mg PO BID omeprazole 20 mg PO DAILY rivaroxaban (Xarelto) 2.5 mg PO BID 30 days rosuvastatin 40 mg PO DAILY umeclidinium 62.5 mcg/actuation (Incruse Ellipta) 1 inh PO DAILY HPI HPI r/s 6 mth f/up: Details: The patient is a 60 year old female presenting for a follow-up visit for coronary artery disease. Her history is significant for an anterior ST-elevation myocardial infarction with percutaneous coronary intervention of the left anterior descending artery on 07/13/2019. Her last echocardiogram 04/15/2020 showed normal EF, impaired relaxation, wall motion abnormality suggesting CAD, no valve abnormalities. Her past medical history also includes peripheral vascular disease with claudication, which occurs with long-distance walking but has not worsened. She also has a history of hyperlipidemia, diabetes, mild left carotid stenosis, and COPD. She is a current smoker but has reduced her cigarette use to 5-6 per day. She denies any chest pain, shortness of breath, or palpitations over the last year. Her current cardiac medications include aspirin, losartan, metoprolol, and rosuvastatin. Her physical activity is limited, though she climbs 15 steps at home, which causes fatigue but no chest discomfort or dyspnea. [facility] Surgical History H/O tubal ligation History of appendectomy Family History Father Diabetes CVD (cardiovascular disease) Mother CVD (cardiovascular disease) HTN (hypertension) Stroke Social History Alcohol intake: former Patient Tobacco Use Status: Current everyday Tobacco user Cigarette Packs Per Day: 0.5 Cigarettes Per Day: 10 Years Smoked: 30 +/- Review of Systems ENT Reports dizziness Card Denies chest pain, Denies chest pain at rest, Denies chest pain with activity, Denies rapid heart rate, Denies pedal edema, Denies edema, Denies leg edema, Denies lightheadedness, Denies palpitations, Denies dyspnea, Denies dyspnea on exertion and Denies orthopnea Resp Denies cough, Denies dyspnea and Denies dyspnea on exertion GI Denies hematochezia and Denies change in stool character Musc Denies abnormal gait, Reports limited range of motion, Reports muscle cramps, Denies muscle weakness, Denies numbness, Denies radiating pain into limb, Denies stiffness and Denies tingling Neuro Denies abnormal gait, Reports dizziness, Denies numbness and Denies tingling Endo Denies palpitations Physical Exam Vital Signs: BMI result Body Mass Index 24.2 Const General: cooperative, healthy appearing, comfortable and no acute distress Orientation/consciousness: patient oriented x3 Neck Neck: Yes normal visual inspection Resp Effort & Inspection: normal respiratory effort Auscultation: clear to auscultation bilaterally, no rales, no rhonchi and no wheezes Cardio Jugular venous distension: no JVD Rate: regular rate Rhythm: regular rhythm Heart sounds: S1 normal heart sound present, S2 normal heart sound present, no gallops, no murmurs and no rubs Neuro General: patient oriented x3 Extrem General: Yes normal to inspection, No no pedal edema and No calf tenderness Psych Appearance: grossly normal Mental Status: mental status grossly normal Speech and movement: Normal speech and movement present Office Procedures EKG Details: Today, read by me, normal sinus rhythm, rate 90, no acute ST or T-wave abnormalities [id number], Complete Assessment & Plan Assessment & Plan (1) CAD (coronary artery disease): Comment: Previous LAD stent. Code(s): I25.10 - Atherosclerotic heart disease of [place] coronary artery without angina pectoris Category: Medical Plan: History of CAD, anterior STEMI 2019 while in [place]. Stent placed to the LAD. Follow-up echo showed normal EF, regional wall motion abnormality present. She has done well since then, currently asymptomatic. EKG today showing sinus rhythm with no acute ST or T-wave abnormalities, rate 90. Continue with risk factor modification. Continue aspirin indefinitely. Continue atorvastatin with ideal LDL goal less than 70. Continue losartan and metoprolol for good blood pressure and heart rate control. Increase physical activity as tolerated. Signs and symptoms of angina reviewed. Cardiology follow-up 6 months, sooner if needed. (2) Stented coronary artery: Comment: Cardiac catheterization 07/14/2019, in [place], lad thrombus 100% stenosis, PCI/stent. Code(s): Z95.5 - Presence of coronary angioplasty implant and graft Category: Surgical Plan: As above (3) Carotid artery stenosis: Code(s): I65.29 - Occlusion and stenosis of unspecified carotid artery Category: Medical Plan: History of mild carotid stenosis. Last carotid ultrasound 01/26/2021 shows normal right ICA, minimal non hemodynamically significant stenosis of the proximal left ICA 0 249%. Continue aspirin and statin. (4) PVD (peripheral vascular disease): Code(s): I73.9 - Peripheral vascular disease, unspecified Category: Medical Plan: Peripheral vascular disease with history of claudication. Symptoms currently stable. (5) Hyperlipidemia: Code(s): E78.5 - Hyperlipidemia, unspecified Category: Medical Plan: [place] LDL goal less than 70. Labs 02/22/2025 showed LDL 56. Continue atorvastatin. Plan I informed the patient that her condition appears stable, with no concerning cardiac symptoms reported in the last year. I reviewed that her EKG and blood pressure today were good. I advised that her current medications will remain unchanged. We discussed her continued smoking and I encouraged her to keep working on quitting. I instructed her to let our office know if she develops any new chest discomfort, squeezing, pressure, or heaviness. We will plan to see her for a follow-up visit in six months, unless new issues arise. Patient Instructions: - Continue taking all of your current medications as they have been prescribed. - Please contact our office if you start to experience any new chest discomfort, squeezing, pressure, or a heavy feeling in your chest. - Continue your efforts to quit smoking. - Use the stairs in your home for exercise by going up and down them a few times each day. This is good for your legs. - We will schedule your next follow-up appointment for six months from now. Please call us sooner if you have any problems. Patient was informed and verbally consented to the use of an ambient scribe for clinic note documentation during this visit. Visit time spent on chart review, interview, assessment, orders, documentation. Coding Level of Care Code Est Pt Level 4 (60368) Add On Problem Visit Only Diagnoses CAD (coronary artery disease) I25.10 Stented coronary artery Z95.5 Carotid artery stenosis I65.29 PVD (peripheral vascular disease) I73.9 Hyperlipidemia E78.5 CPT Codes EKG - CPT: 02034-[id number], Complete ([id number]) Time Spent (min) 30
[2025-09-07 12:50] VITALS: BP 120/52; PULSE 90; BMI 24.2
--- OUTSIDE RECORDS SUMMARY | 2025-09-07 13:28 | XMS_ITS | Encounter Summary ---
Author Organization [employer] Address [address] [place] [address] [address] [place] [address] Care Team Providers Care Sound Mixer Name Role Phone Dillon Thomson MD Primary Care Prov ider Encounter Details Date Type Department Care Team ([facility] st Contact Info) Description 02/22/2025 Orders Only [facility] CHC MED & PEDS [address] [place] [address] Dillon Thomson MD [address] [place] [address] Social History Tobacco Use Types Packs/Day Years Used Date Smoking Tobacco: Former Cigarettes 0.3 36 S tarted: 1989 Smokeless Tobacco: Never Alcohol Use Standard Drinks/Week Comments Never 0 (1 standard drink = 0.6 oz pur e alcohol) Alcohol Answer Date Recorded Frequency of Alcohol Consumption Not on file 07/28/2024 Average Number of Drinks Not on file 024 Frequency of Binge Drinking Not on file 07/17 Score 0 07/28/2024 Depression Answer Date Recorded Patient Health Questionnaire-9 Score 5 02/18/2025 Patient Health Questionnaire-9 Score 5 02/18/2025 Last PHQ-9: Questionnaire Data Not on file 0 02/18/2025 Housing Stability Answer Date Recorded What is your housing situation today? I have tim hartman 07/20/[address] you li ve. Do you have problems with any of the following? None of the above 07/20/2024 Food Insecurity Answer Date Recorded Within the past 12 months, y ou worried that your food would run out before you got money to buy more: Never True 07/20/2024 Within the past 12 months,th e food you bought just didn't last and you didn't have enough money to get more: Never True 12/2023 Transportation Answer Date Recorded In the past 12 months, has l ack of transportation kept you from medical appts, meetings, work or from getting things needed for daily living? No 07/20/2024 Utilities Answer Date Recorded In the past 12 months, has t he electric, gas, oil or water company threatened to shut off services in your home? No 07/20/2024 Depression Answer Date Recorded Patient Health Questionnaire-2 Score 2 02/18/2025 Internet Access Answer Date Recorded Internet Access Q1 Yes 07/20/2024 Internet Access Q2 Not on file 07/20/2024 Comments Unknown Sex and Gender Information Value Date Recorded Sex Assigned at Female 07/16/2022 10:36 AM EDT Legal Sex Female 10:36 AM EDT Gender Identity Female 07/16/2022 10:36 AM EDT Sexual Orientation Choose not to disclose 2024 1:47 PM EDT documented as of this encounter Plan of Treatment Upcoming Encounters Date Type Department Care Team (Late st Contact Info) Description 09/27/2025 2:30 PM EST Office Visit [facility] MED & PEDS [address] [place] [address] Dillon Thomson MD [address] [place] [address] documented as of this encounter Visit Diagnoses Not on filedocumented in this encounter Additional Health Concerns Assessment Noted Time PHQ-9 Depression Total Score: 5 02/19/20 25 10:34 AM EDT documented as of this encounter Care Teams Sound Mixer Relationship Specialty Start Date End Date Dillon Thomson MD [address] [place] [address] PCP - General Internal Medicine 10/13/19 Sola Fields Derrick HelperPaunch Trimmer 10/22/23 documented as of this encounter
--- OUTSIDE RECORDS SUMMARY | 2025-09-07 13:28 | XMS_ITS | Encounter Summary ---
Author Organization [employer] Address [address] [place] [address] 7 [place] [address] Care Team Providers Care Director Of Dietary Name Role Phone Dillon Thomson MD Primary Care Prov ider Reason for Visit * Reason Comments Med Refill Encounter Details Date Type Department Care Team ([facility] st Contact Info) Description 03/02/2025 Refill [facility] CHC MED & PEDS [address] [place], [place] [phone] Dillon Thomson MD [address] [place] [address] Neuropathy Social History Tobacco Use Types Packs/Day Years [...] Description 09/27/2025 2:30 PM EST Office Visit [facility] CHC MED & PEDS [address] [place] [address] Dillon Thomson MD [address] [place] [address] documented as of this encounter Visit Diagnoses Diagnosis Neuropathy Mononeuritis of unspecified site documented in this encounter Additional Health Concerns Assessment Noted Time PHQ-9 Depression Total Score: 5 02/19/20 25 10:34 AM EDT documented as of this encounter Care Teams Director Of Dietary Relationship Specialty Start Date End Date Dillon Thomson MD [address] [place] [address] PCP - General Internal Medicine 10/13/19 Sola Fields Shredder TenderSales Account Leader 10/22/23 documented as of this encounter
--- OUTSIDE RECORDS SUMMARY | 2025-09-07 13:28 | XMS_ITS | Encounter Summary ---
Author Organization [employer] Address [address] [place] [address] 7 [place] [address] Care Team Providers Care Residential Carpenter Name Role Phone Dillon Thomson MD Primary Care Prov ider Encounter Details Date Type Department Care Team (Late st Contact Info) Description 01/21/2023 Orders Only [facility] MED & PEDS [address] [place] [address] Desiree Shaver LPN Social History Tobacco Use [...] Description 09/27/2025 2:30 PM EST Office Visit [facility] MED & PEDS [address] [place] [address] Dillon Thomson MD [address] [place] [address] documented as of this encounter Procedures Procedure Name Priority Date/Time Associated Diagnosis Comments ALBUMIN, RANDOM URINE W/CREATININE Routine 06/04/2023 9:10 AM EDT COMPREHENSIVE METABOLIC PANEL, FASTING Routine 06/04/2023 9:05 AM EDT documented in this encounter Results * (ABNORMAL) Albumin, Random Urine W/Creatinine (06/04/2023 9:10 AM EDT) Creatinine, Urine 53.80 mg/dL [facility] Microalbumin Urine 49.0 mg/L [facility] Microalbum Creatinine Ratio Ur 91.0(H) <30 ug/mg cr [facility] Comment:Albumin/Creatinine R atio Reference Ranges: Normal: < 30 ug/mg creatinine Microalbuminuria: 30 - 300 ug/mg creatinineClinical Albuminuria: > 300 ug/mg creatinine 06/04/2023 9:10 AM EDT 06/04/2023 2:41 PM EDT us Dillon Sanders MD LAB URINE ORDERABL ES Final Result [facility] [address] [place] [phone] * (ABNORMAL) Comprehensive Metabolic Panel, Fasting (06/04/2023 9:05 AM EDT) Sodium 140 135 - 145 mmol/L [facility] Potassium 4.1 3.3 - 5.1 mmol/L [facility] Chloride 107 96 - 108 mmol/L [facility] Carbon Dioxide 25 22 - 29 mmol/L [facility] Anion Gap 12 12 - 20 [facility] Urea Nitrogen (BUN) 12 9 - 16 mg/dL [facility] Creatinine, Serum 0.69 0.5 - 1.4 mg/dL [facility] Estimated Glomerular Filt Rate >60 [facility] Comment:NOTE: For -Am erican individuals, multiply the result by 1.210.Chronic Kidney Disease: Estimated GFR < 60 mL/min/[id number] Kidney Disease: Estimated GFR < 15 mL/min/1.73m2 Glucose Fasting 153(H) 60 - 99 mg/dL [facility] Comment:A fasting glucose of 126 mg/dl or greater on more than oneoccasion is considered diagnostic of diabetes. Calcium 9.9 8.4 - 10.2 mg/dL [facility] Bilirubin, Total 0.7 0.0 - 1.0 mg/dL [facility] Aspartate Amino Transferase 39(H) 5 - 31 U/L [facility] Alanine Aminotransferase 70(H) 0 - 31 U/L [facility] Total Protein 8.0 6.5 - 8.0 g/dL [facility] Albumin Level 4.4 3.5 - 5.0 g/dL [facility] Alkaline Phosphatase 102 39 - 117 U/L [facility] 06/04/2023 9:05 AM EDT 06/04/2023 2:20 PM EDT us Dillon Sanders MD LAB BLOOD ORDERABL ES Final Result [facility] [address] [place] [address] [phone] documented in this encounter Visit Diagnoses Not on filedocumented in this encounter Care Teams Residential Carpenter Relationship Specialty Start Date End Date Dillon Thomson MD [address] [place] [phone] PCP - General Internal Medicine 10/13/19 Sola Fields QuarrymanScale Shooter 10/22/23 documented as of this encounter
--- OUTSIDE RECORDS SUMMARY | 2025-09-07 13:28 | XMS_ITS | Clinical Summary ---
Author Organization [facility] Address [address] [facility] [address] [place] [address] Phone Care Team Providers Care Gun Striper Name Role Phone Dillon Meléndez Primary Care [...] Last Done Comments Breast Cancer Screening 1965 Colorectal Cancer Screening: Annual FOBT 2014 Colorectal Cancer Screening: Colonoscopy 2014 Colorectal Cancer Screening: Sigmoidoscopy 2014 Diabetes: Ophthalmology Exam 07/16/2023 Diabetes: Pedal Pulse Checked 07/16/2023 Diabetes: Sensory Foot Exam 07/16/2023 Diabetes: Visual Foot Exam 07/16/2023 Diabetes: Hemoglobin A1C 09/03/2023 06/04/2023 Influenza Vaccine (#1) 2025 3, 11/27/2021 Pneumococcal Vaccine: 50+ Years Completed 06/10/2023 Pneumococcal Vaccine: Peds ( 0 to 5 Years) and At-Risk Patients (6 to 49 Years) Discontinued 06/10/2023 Hepatitis B Vaccine Aged Out No longe r eligible based on patient's age to complete this topic Insurance Medicaid [place], [place] Care Teams Gun Striper Relationship Specialty Start Date End Date Dillon Meléndez: [phone] PCP - General Internal Medicine 07/16/23
--- OUTSIDE RECORDS SUMMARY | 2025-09-07 13:28 | XMS_ITS | Encounter Summary ---
Author Organization [employer] Address [address] [facility] 7t [place] [address] Care Team Providers Care Golf Course Keeper Name Role Phone Dillon Thomson MD Primary Care Prov ider Reason for Visit * Reason Comments Med Refill Encounter Details Date Type Department Care Team (Late st Contact Info) Description 03/01/2025 Refill [facility] CHC MED & PEDS [address] [place], [place] [phone] Name, MD Michael [address] [place] [address] Type 2 diabetes mellitus without complication, without long-term current use of insulin ([facility]) Social History Tobacco Use Types Packs/Day Years [...] the past 12 months, has t he [employer], gas, oil or water company threatened to [...] Description 09/27/2025 2:30 PM EST Office Visit [facility] MED & PEDS [address] [place] [address] Dillon Thomson MD [address] [place] [address] documented as of this encounter Visit Diagnoses Diagnosis Type 2 diabetes mellitus without complication, without long-term current use of insulin (HCC) documented in this encounter Additional Health Concerns Assessment Noted Time PHQ-9 Depression Total Score: 5 02/19/20 25 10:34 AM EDT documented as of this encounter Care Teams Golf Course Keeper Relationship Specialty Start Date End Date Dillon Thomson MD [address] [place] [address] PCP - General Internal Medicine 10/13/19 Sola Fields Cosmetics Machine OperatorBalance And Hairspring Assembler 10/22/23 documented as of this encounter
--- OUTSIDE RECORDS SUMMARY | 2025-09-07 13:28 | XMS_ITS | Encounter Summary ---
Author Organization [employer] Address [address] [place] [address] 7 [place] [address] Care Team Providers Care Lead Electrical Controls Engineer Name Role Phone Dillon Thomson MD Primary Care Prov ider Reason for Visit * Reason Comments Med Refill Encounter Details Date Type Department Care Team ([facility] st Contact Info) Description 03/11/2025 Refill [facility] CHC MED & PEDS [address] [place] [address] Dillon Thomson MD [address] [place] [address] Neuropathy Social History Tobacco Use Types Packs/Day [...] Access Q2 Not on file 07/20/2024 Comments No Sex and Gender Information Value Date Recorded [...] Description 09/27/2025 2:30 PM EST Office Visit [facility] CH[facility] MED & PEDS [address] [place] [address] Dillon Thomson MD [address] [place] [address] documented as of this encounter Visit Diagnoses Diagnosis Neuropathy Mononeuritis of unspecified site documented in this encounter Additional Health Concerns Assessment Noted Time PHQ-9 Depression Total Score: 5 02/19/20 25 10:34 AM EDT documented as of this encounter Care Teams Lead Electrical Controls Engineer Relationship Specialty Start Date End Date Dillon Thomson MD [address] [place] [address] PCP - General Internal Medicine 10/13/19 Sola Fields Meteorological Equipment RepairerCrayon Grader 10/22/23 documented as of this encounter
--- OUTSIDE RECORDS SUMMARY | 2025-09-07 13:29 | XMS_ITS | Encounter Summary ---
Author Organization [employer] Address [address] [place] [address] 7 [place] [address] Care Team Providers Care Anvil Seating Press Operator Name Role Phone Dillon Thomson MD Primary Care Prov ider Reason for Visit * Reason Comments Med Refill Encounter Details Date Type Department Care Team ([facility] st Contact Info) Description 08/22/2024 Refill [facility] CHC MED & PEDS [address] [place], [place] [phone] Dillon Thomson MD [address] [place] [address] Social History Tobacco Use Types Packs/Day Years [...] Answer Date Recorded Patient Health Questionnaire-9 Score 0 06/03/2023 Housing Stability Answer Date Recorded What is [...] Answer Date Recorded Patient Health Questionnaire-2 Score 0 06/03/2023 Internet Access Answer Date Recorded Internet Access [...] Description 09/27/2025 2:30 PM EST Office Visit [facility] MED & PEDS [address] [place] [address] Dillon Thomson MD [address] [place] [address] documented as of this encounter Visit Diagnoses Not on filedocumented in this encounter Additional Health Concerns Assessment Noted Time PHQ-9 Depression Total Score: 0 06/03/20 23 1:54 PM EDT documented as of this encounter Care Teams Anvil Seating Press Operator Relationship Specialty Start Date End Date Dillon Thomson MD [address] [place] [address] PCP - General Internal Medicine 10/13/19 Sola Fields Water/Wastewater Project EngineerDitch Cleaner 10/22/23 documented as of this encounter
--- OUTSIDE RECORDS SUMMARY | 2025-09-07 13:29 | XMS_ITS | Clinical Summary ---
Author Organization [employer] Address [address] [place] [address] [address] [place] [address] Care Team Providers Care Olap Developer Name Role Phone Dillon Thomson MD Primary Care Prov ider Allergies Active Allergy Reactions Criticality Noted Date Comments Shellfish Allergy 09/03/2022 Medications Umeclidinium [place] (Incruse Ellipta) 62.5 MCG/ACT aerosol powder Inhale 1 puff in the morning. Active pen needle 32G x 5 mm misc Inject under the skin. Use as instructed QID Active Pentips 32G X 4 MM misc USE ONE FOUR TIMES DAILY 100 each 3 023 Active EPINEPHrine (Epipen) 0.3 MG/0.3ML injection syringe Inject 0.3 mL (0.3 mg) as directed 1 (one) time for 1 dose. use as directed for allergic reaction and then call 911 0.3 mL 024 Active omeprazole (PriLOSEC) [address] capsuleIndication s:Gastroesophagea l reflux disease without esophagitis Take 1 capsule (20 mg) by mouth before breakfast. Do not crush or chew. 90 capsule 3 024 Active losartan (Cozaar) 25 MG tabletIndications :Primary hypertension Take 1 tablet (25 mg) by mouth in the morning. 90 tablet 2 024 Active Aspirin Adult Low Strength 81 MG EC tabletIndications :Primary hypertension TAKE ONE TABLET EVERY MORNING 90 tablet 3 025 Active rosuvastatin (Crestor) 40 MG tabletIndications :Mixed hyperlipidemia TAKE ONE TABLET EVERY EVENING 90 tablet 3 025 Active spironolactone (Aldactone) 25 MG tablet Take 1 tablet (25 mg) by mouth 2 times daily. 60 tablet Active Dulaglutide (Trulicity) 4.5 MG/0.5ML solution auto-injector Inject 4.5 mg under the skin 1 (one) time per week. 2 mL 5 12:51 PM EST Active insulin glargine (Lantus SoloStar) 100 UNIT/ML pen Inject 10 Units under the skin at bedtime. 3 mL 3 Active Continuous Glucose Sensor (FreeStyle Donovan 3 Sensor) misc 1 Units 3 times daily. USE THREE TIMES A DAY 2 each 5 12:51 PM EST Active Xarelto 2.5 MG tablet TAKE ONE TABLET IN THE MORNING AND EVENING Active gabapentin (Neurontin) 600 MG tabletIndications :Neuropathy TAKE ONE TABLET THREE TIMES DAILY IN THE MORNING, AT NOON, AND AT BEDTIME 90 tablet 2 5 12:51 PM EST Active Alcohol Swabs (Alcohol Prep) 70 % pads USE SEVEN DAILY 100 each Active cholecalciferol (Vitamin D-3) 25 MCG tabletIndications :Vitamin D deficiency TAKE ONE TABLET EVERY MORNING 90 tablet Active metoprolol tartrate (Lopressor) 50 MG tabletIndications :Primary hypertension TAKE ONE TABLET IN THE MORNING AND EVENING FOR BLOOD PRESSURE 180 tablet Active cetirizine (ZyrTEC) 10 MG tablet TAKE ONE TABLET EVERY MORNING 90 tablet 3 5 12:51 PM EST Active Jardiance 25 MG TAKE ONE TABLET EVERY MORNING 30 tablet 11 5 12:51 PM EST 025 Active empagliflozin (Jardiance) 25 MG Take 1 tablet (25 mg) by mouth in the morning. 90 tablet 3 024 2024 Discontinued cetirizine (ZyrTEC) 10 MG tablet Take 1 tablet (10 mg) by mouth Once per day. 30 tablet 11 024 2024 Discontinued(R eorder (will not trigger notification to Pharmacy)) Active Problems Problem Noted Date Diagnosed Date Cervical cancer screening 03/09/2025 Assessment & Plan (03/09/2025 10:41 AM EDT): 59 y.o. here for cervical cancer screening. Will continue monitoring following ASCCP guidelines. Acute cystitis with hematuria 03/09/2025 Assessment & Plan (03/09/2025 10:42 AM EDT): + nitrates and symptoms, will send nitrofuratoin, send urine to culture. Followup prn Screening for lung cancer 07/28/2024 Assessment & Plan (07/28/2024 11:10 AM EST): Smoking hx 34 pack year, will refer to pneumology for screening evelia gcancer Proteinuria 09/19/2023 Ptosis of both eyelids 07/01/2023 Assessment & Plan (07/01/2023 2:33 PM EDT): [facility] referral for evaluation Assistance needed for housework 07/01/2023 Assessment & Plan (07/01/2023 2:36 PM EDT): Due to patient comorbidity, she would benefit from a CLOTH CUTTING INSPECTOR, to help her with daily activities, will send request to insurance for approval Primary hypertension 06/04/2023 Assessment & Plan (02/18/2025 12:15 PM EDT): Controlled, keep low sodium diet and exercise as tolerated, keep bp log, will follow up in 4 months Assessment & Plan (07/28/2024 6:01 PM EST): Controlled, continue losartan and metoprolol, reinforced low sodium diet and exercise as tolerated, keep bp log, follow up in 3 months Assessment & Plan (07/01/2023 2:30 PM EDT): Controlled, on losartan, reinforced low sodium diet and exercise as tolerated, bp target <130/80 Assessment & Plan (06/04/2023 8:49 AM EDT): Controlled, although today was borderline low, she is not monitoring on a daily basis, told to keep a bp log, target <130/80 >100/60, she will contact me in case of results are out of above range Type 2 diabetes mellitus wit h circulatory disorder, with long-term current use of insulin 06/04/2023 Assessment & Plan (02/18/2025 12:16 PM EDT): Will increase trulicity to 4.5mg, continue lantus 10 units, will decide on next appointment if will leave her on trulicity and jardiance only Assessment & Plan (07/28/2024 6:02 PM EST): Will increase trulicity told to decrease lantus to 10 units, keep glucose log, keep low carb/no sugar diet, follow up in 3 months Foot exam done was unremarkable Assessment & Plan (06/25/2024 1:51 PM EDT): New labs will be ordered for guidance of therapy, no reported episode of hypoglycemia, she is on lantus, trulicity jardiance and short acting insulin Assessment & Plan (07/01/2023 2:32 PM EDT): Controlled, no episode of hypoglycemia, last A1c from 05/2023 was 6.9%, reinforced low carb/no sugar diet, follow up in 3 months Assessment & Plan (06/04/2023 8:50 AM EDT): Patient followed by endocrinology, she is on lantus, humalog, trulicity, jardiance, will order new labs for guidance of therapy. Will place eye exam referal Mixed hyperlipidemia 06/04/2023 Assessment & Plan (02/18/2025 12:15 PM EDT): On statin therapy, reviewed last blood work, no changes will be made, continue low cholesterol diet, exercise as tolerated Assessment & Plan (06/25/2024 2:21 PM EDT): New labs will be ordered for guidance of therapy Assessment & Plan (06/04/2023 8:51 AM EDT): On statin therapy, will order new labs for guidance of therapy Coronary artery disease invo [place]ving [place] coronary artery of [place] heart without angina pectoris 06/04/2023 Assessment & Plan (02/18/2025 12:14 PM EDT): Followed by cardiology, no further episode of chest pain, will follow up reccomendations Assessment & Plan (06/25/2024 1:47 PM EDT): Followed by cardiology, has upcoming appointment on July, no reported episode of chest pain Assessment & Plan (06/04/2023 8:53 AM EDT): Patient lost cardiology follow up, told to rescheduled, she is on DAPT, ARB and statin therapy, no reported chest pain episodes Screening for colon cancer 06/04/2023 Assessment & Plan (06/04/2023 8:54 AM EDT): Will order cologuard risk vs benefits discussed Encounter for screening mamm ogram for malignant neoplasm of breast 06/04/2023 Assessment & Plan (06/04/2023 8:56 AM EDT): Will order a mammogram for screening Encounters Date Type Department Care Team Description 08/23/2025 Refill [facility] [address] [place] [address] Dillon Thomson MD 08/07/2025 Refill [facility] [address] [place] [address] Dillon Thomson MD 07/22/2025 Refill [facility] [address] [place] [address] Lluvia Elias MD Vitamin D deficiency; Primary hypertension 07/14/2025 Refill [facility] [address] [place] [address] Dillon Thomson MD 06/08/2025 Refill [facility] [address] [place] [address] Dillon Thomson MD Neuropathy from Last 3 Months Immunizations Immunization Administration Dates Next Due Influenza Injectable Quadriv alant Preservative Free IIV4 MDCK 06/10/2023,11/27/2021 Pneumococcal Conjugate PCV 20 06/10/2023 Tdap 11/27/2021 Zoster, Recombinant 06/10/2023,11/27/2021 Family History Medical History Relation Name Comments Coronary artery disease Father Breast cancer Mother Relation Name Status Comments Father Mother Social History Tobacco Use Types Packs/Day Years Used Date Smoking Tobacco: Former Cigarettes 0.3 36 S tarted: 1989 Smokeless Tobacco: Never Tobacco Cessation:Counseling Given: Not Answered Alcohol Use Standard Drinks/Week Comments Never 0 [...] not to disclose 2024 1:47 PM EDT Last Filed Vital Signs Vital Sign Reading Time Taken Comments Blood Pressure 108/64 03/09/2025 10:13 AM EDT Pulse 97 03/09/2025 10:13 AM EDT Temperature 37.1 C (98.7 F) 03/09/2025 10:13 AM EDT Respiratory Rate 16 03/09/2025 10:13 AM EDT Oxygen Saturation 96% 03/09/2025 10:13 AM EDT Inhaled Oxygen Concentration - - Weight 63 kg (139 lb) 03/09/2025 10:13 AM EDT Height 162.6 cm (5' 4 ) 03/09/2025 10:13 AM EDT Body Mass Index 23.86 03/09/2025 10:13 AM EDT Plan of Treatment Upcoming Encounters Date Type Department Care Team (Late st Contact Info) Description 09/27/2025 2:30 PM EST Office Visit [facility] [address] [place] [address] Dillon Thomson MD [address] [place] [address] Health Maintenance Due Date Last Done Comments CT Colonography 1965 Colonoscopy 1965 FIT 1965 Sigmoidoscopy 1965 Disability Screening 1965 Eye Exam 1975 Alcohol/Substance Use Screening 1977 RSV Patients and Patients Aged 60 years or older (1 - Risk 50-74 years 1-dose series) 2015 FOBT 06/17/2024 06/17/2023 COVID-19 Vaccine ( season) 2025 12/26/2020, 11/28/2020 Influenza Vaccine (#1) 2025 06/10/2023, 2021 Diabetes: Hemoglobin A1C 05/25/2025 025, 06/26/2024, 06/04/2023, Additional history exists Diabetes: Urine Protein Screening 06/26/2025 06/26/2024, 06/26/2024, 06/04/2023, Additional history exists Diabetes: Foot Exam 07/28/2025 07/28/2024, 07/28/2024, 07/28/2024, Additional history exists SDOH Screening 07/28/2025 07/28/2024 Depression Screening 02/18/2026 02/18/2025, 02/19/20 Lipid Panel 02/22/2026 02/22/2025, 06/16, 06/04/2023, Additional history exists Tobacco Screening 03/09/2026 03/09/2025 Colorectal Cancer Screening 06/17/2026 FIT DNA/Cologuard 06/17/2026 06/17/2023 Mammogram 2027 2025, 11/2022, 11/22/2021, Additional history exists Cervical Cancer Screening 03/09/2030 HPV/Cotest 03/09/2030 03/09/2025, 11/17/2019 Pap Smear 03/09/2030 03/09/2025 DTaP/Tdap/Td Vaccines (2 - Td or Tdap) 11/28/2031 11/27/2021 HIV Screening Completed 10/13/2019 Hepatitis C Screening Completed 06/28/2022 Pneumococcal Vaccine: 50+ Years Completed 06/10/2023 Zoster Vaccines Completed 06/10/2023, 11/27/2021 HIB Vaccines Aged Out No longer eligi ble based on patient's age to complete this topic HPV Vaccines Aged Out No longer eligi ble based on patient's age to complete this topic Hepatitis A Vaccines Aged Out No long er eligible based on patient's age to complete this topic Hepatitis B Vaccines Aged Out No long er eligible based on patient's age to complete this topic IPV Vaccines Aged Out No longer eligi ble based on patient's age to complete this topic Meningococcal B Vaccine Aged Out No l onger eligible based on patient's age to complete this topic Meningococcal Vaccine Aged Out No raul timbo eligible based on patient's age to complete this topic RSV under 20 months Aged Out No longe r eligible based on patient's age to complete this topic Rotavirus Vaccines Aged Out No longer eligible based on patient's age to complete this topic Procedures Procedure Name Priority Date/Time Associated Diagnosis Comments BI MAMMOGRAM SCREENING TOMOSYNTHESIS BILATERAL Routine 2025 2:03 PM EDT Breast cancer screening by mammogram HPV DNA, LOW/HIGH RISK Routine 10:49 AM EDT Cervical cancer screening PAP SMEAR Routine 03/09/2025 10:49 AM EDT Cervical cancer screening HEMOGLOBIN A1C Routine 02/22/2025 8:42 AM EDT Type 2 diabetes mellitus with other circulatory complication, with long-term current use of insulin (CMS/HCC) LIPID PANEL, STANDARD Routine 02/22/2025 8:42 AM EDT Type 2 diabetes mellitus with other circulatory complication, with long-term current use of insulin (CMS/HCC) ALBUMIN, RANDOM URINE W/CREATININE Routine 06/26/2024 8:48 AM EDT Type 2 diabetes mellitus with other circulatory complication, with long-term current use of insulin (CMS/HCC) LAB COLOGUARD COLON CANCER SCREEN Routine 06/17/2023 12:01 AM EDT Screening for colon cancer ZZZ HISTORICAL HEPATITIS C AB W/REFL TO HCV RNA, QN, PCR Routine 06/28/2022 8:38 AM EDT ZZZ HISTORICAL HIV AB/AG Routine 10/13/2019 3:41 PM EST from Last 3 Months or Most Recently Relevant to Health Maintenance Results * BI Mammogram Screening Tomosynthesis Bilateral (2025 2:03 PM EDT) Anatomical Region Laterality Modality Breast Bilateral Mammography 2025 2:03 PM EDT Narrative 04/09/2025 2:31 PM EDT [address] [place] [address] Mammography Report Signed Patient: Sabiha Laguerre MR#: [id number] : 1965 Acct:[id number] Age/Sex: 60 / F ADM Date: 03/26/25 Loc: HO.MAMMO Attending Dr: Dillon Sanders MD Ordering Physician: Lluvia Elias MD Results: 1Nega tive Date of Service: 03/26/25 Follow Up: 1 Year From Orig inal Mammogram Procedure(s): MM tomosynthesis screening BI Accession Number(s): [id number] cc: Lluvia Elias MD EXAMINATION: MM SCREENING DIGITAL BREAST TOMOSYNTHESIS, BILATERAL CLINICAL INFORMATION: Screening. Asymptomatic. COMPARISON: Mammography: Comparison is made with available priors TECHNIQUE: Digital breast mammography with tomosynthesis is performed in both the craniocaudal and mediolateral oblique views along with computer-aided detection (CAD). FINDINGS: There are scattered areas of fibroglandular density (ACR BI-RADS breast composition Category b). There are no significant masses, abnormal calcifications, or other abnormalities. MM/MM tomosynthesis screening BI IMPRESSION: No mammographic evidence of malignancy. ASSESSMENT: BI-RADS BI-RADS 1 - Negative RECOMMENDATION: Routine annual mammography screening. 1 year F/U This examination should not preclude the clinical evaluation of a suspicious palpable abnormality. This patient's information was entered into a reminder system with a target due date for their next mammogram. Electronically signed by: Naty Valdivia DO 04/09/2025 02:28 PM EDT Dictated By: Naty Valdivia DO Signed By: <Electronically signed by Naty Valdivia DO in OV> 04/09/25 1428 DD/ 1403 TD/TT: 03/26/25 142 Manager Deli: Procedure Note Donotuseinterpreter, Image - 04/09/[address] [place] [address] Mammography Report Signed Patient: Sabiha LaguerreMR#: [id number] : 1965Acct:[id number] Age/Sex: 60 / FADM Date: 03/26/25 Loc: HO.MAMMO Attending Dr: Dillon Sanders MD Ordering Physician: Lluvia Eliasults: 1Nega tive Date of Service: 03/26/25Follow Up: 1 Year From [facility] Mammogram Procedure(s): MM tomosynthesis screening BI Accession Number(s): [id number] cc: Lluvia Elias MD EXAMINATION: MM SCREENING DIGITAL BREAST TOMOSYNTHESIS, BILATERAL CLINICAL INFORMATION: Screening. Asymptomatic. COMPARISON: Mammography: Comparison is made with available priors TECHNIQUE: Digital breast mammography with tomosynthesis is performed in both the craniocaudal and mediolateral oblique views along with computer-aided detection (CAD). FINDINGS: There are scattered areas of fibroglandular density (ACR BI-RADS breast composition Category b). There are no significant masses, abnormal calcifications, or other abnormalities. MM/MM tomosynthesis screening BI IMPRESSION: No mammographic evidence of malignancy. ASSESSMENT: BI-RADS BI-RADS 1 - Negative RECOMMENDATION: Routine annual mammography screening. 1 year F/U This examination should not preclude the clinical evaluation of a suspicious palpable abnormality. This patient's information was entered into a reminder system with a target due date for their next mammogram. Electronically signed by: Naty Valdivia DO 04/09/2025 02:28 PM EDT Dictated By: Naty Valdivia DO Signed By: <Electronically signed by Naty Valdivia DO in OV> 04/09/25 1428 DD/ 1403 TD/TT: 03/26/25 1422 Manager Deli: us Lluvia Elias MD IMG BI PROCEDURES Edited Resu lt - Final * HPV High Risk with Reflex to Subtypes (03/09/2025 10:49 AM EDT) HPV High Risk Negative Negative [facility] HPV Genotype 16 Negative Negative [facility] HPV Genotype 18 Negative Negative [facility] Comment:HPV testing performe d at [facility] (CLIA#[id number]), [address] [place] [id number].Testing for HPV was performed using the Tone AMA 6800system. The presence of HPV in the female genital tract isassociated with a number of diseases, including cervicalcarcinoma. The HPV DNA high risk pool tests for HPV 31, 33,35, 39, 45, 51, 52, 56, 58, 59, 66 and 68. The testing forHPV 16 and 18 genotypes has also been performed. A positiveresult indicates detection of nucleic acid sequences fromone or more subtypes, whereas a negative result indicatessuch sequences were not detected. Pap Vial 03/09/2025 10:4 9 AM EDT 03/09/2025 2:20 PM EDT us Lluvia Elias MD LAB BLOOD ORDERABLES Final Re sult [facility] [address] [place] [phone] * Pap Smear (03/09/2025 10:49 AM EDT) Swab Cervix uteri structure / Unknown 03/09/2025 10:49 AM EDT 03/09/2025 2:20 PM EDT Narrative [facility] - 03/15/2025 12:43 PM EDT ----- ------- Name: Sabiha Laguerre Age/Sex: 59/F : 1965 Unit#: [id number] Attend Dr: Lluvia Elias MD Re03/09/25 Status: [facility] Disch: ----- ------- SPEC : [id number] RECD: 03/09/25 STATUS: SAIDA MOYER NUM: [id number] NANCY: 03/09/[address] [facility] [address]: Lluvia Elias MD ENTERED: 03/09/25 SP TYPE: Pap Smr OTHR DR: ORDERED: Pap Smear Interpretation Satisfactory for evaluation. Negative for intraepithelial lesion or malignancy. Obscuring inflammation. HPV High Risk: Negative HPV Genotyping 16: Negative HPV Genotyping 18: Negative Clinical Information LMP: 09/16/2013, Post menopausal Previous PAP test: Unknown date/findings Other history: Cervical cancer screening Material Received ThinPrep-Cervical PAP Disclaimer As of July 08, 2024, the technical services to include automated prescreening performed by the ThinPrep Imaging System, PAP screening and HPV testing will be performed at [facility] (CLIA #[id number]), [address] [place] [address]. Testing for HPV was performed using the Tone AMA 6800 system. The presence of HPV in the female genital tract is associated with a number of diseases, including cervical carcinoma. The HPV DNA high risk pool tests for HPV 31, 33, 35, 39, 45, 51, 52, 56, 58, 59, 66 and 68. The testing for HPV 16 and 18 genotypes has also been performed. A positive result indicates detection of nucleic acid sequences from one or more subtypes, whereas a negative result indicates such sequences were not detected. All professional services are performed by [facility] ([address] [place] [id number]; ; CLIA #[id number]). The PAP Test is a screening procedure with the inherent possibility of both false negative and false positive results. Results should be interpreted in the context of historic and current clinical findings. Reliability of the PAP Test is enhanced by performing the test on a regular repetitive basis. CONTINUED ON NEXT PAGE ----- ------- Name: Sabiha Laguerre Age/Sex: 59/F : 1965 Unit#: [id number] Attend Dr: Lluvia Elias MD Re03/09/25 Status: [facility] RE[facility] Location: [facility] Disch: ----- ------- SPEC : [id number] RECD: 03/09/25 STATUS: SAIDA MOYER NUM: [id number] NANCY: 03/09/25-[address] [facility] [address]: Lluvia Elias MD ENTERED: 03/09/25 SP TYPE: Pap Juhi AMARO DR: ORDERED: Pap Smear ----- ------- Signed (signature on file) RICH Munguia ([facility]) 03/15/25 1243 ----- ------- END OF REPORT us Lluvia Elias MD LAB CYTOLOGY ORDERABLES Final Result Performing Organization Address [facility] Co de Phone Number [facility] [address] [place] [address] [phone] * (ABNORMAL) Hemoglobin A1c (02/22/2025 8:42 AM EDT) Hemoglobin A1c 8.5(H) <6.0 % [facility] Comment:Hemoglobin A1C Refer ence Range Adults: 4.8 - 6.0 % Non diabetic: < 6.0 % Goal: < 7.0 %Additional Action Suggested: > 8.0 %Note: Hemoglobin A1c results are invalid for patients with abnormal amounts of HbF. Blood transfusions may impact the HbA1c concentration in the patient sample. Estimated Average Glucose 197 mg/dL [facility] Comment:eAG = Estimated ave rage glucose which is %A1C expressed asaverage glucose, using the formula of the [id number] Glucose study (ADAG), Diabetes Care, Vol.31,#8,2007 Blood Venous blood specimen / Unknown 02/22/2025 8:42 AM EDT 02/22/2025 2:11 PM EDT Dillon Sanders MD LAB BLOOD ORDERABL ES Final Result Performing Organization Address [facility] Co de Phone Number [facility] [address] [place] [address] [phone] * (ABNORMAL) Lipid Panel, Standard (02/22/2025 8:42 AM EDT) Triglycerides 179(H) <150 mg/dL [facility] Comment:Desirable Triglyceri de: less than 150 mg/dLBorderline High Triglyceride 150-199 mg/dLHigh Triglyceride: 200-499 mg/dLVery High Triglyceride: greater than or equal to 5OO mg/dL Cholesterol 127 <200 mg/dL [facility] Comment:Desirable Cholestero l: less than 200 mg/dLBorderline High Cholesterol: 200-239 mg/dLHigh Cholesterol: greater than 239 mg/dL LDL Cholesterol Calculated 56 <100 mg/dL [facility] Comment:Desirable LDL: less than 100 mg/dLNear Optimal/Above Optimal LDL: 110- 129 mg/dLBorderline High LDL: 130-159 mg/dLHigh LDL: 160-189 mg/dLVery High LDL: greater than or equal to 190 mg/dL HDL Cholesterol 36(L) >40 mg/dL [facility] Comment:Desirable HDL: great er than 40 mg/dL Note: This HDL assay may give artificially low results in patients with liver disease. Blood Venous blood specimen / Unknown 02/22/2025 8:42 AM EDT 02/22/2025 2:17 PM EDT us Dillon Sanders MD LAB BLOOD ORDERABL ES Final Result [facility] [address] [place] [phone] * (ABNORMAL) Albumin, Random Urine W/Creatinine (06/26/2024 8:48 AM EDT) Creatinine, Urine 70.63 mg/dL [facility] Microalbumin Urine 70.0 mg/L [facility] Microalbum Creatinine Ratio Ur 99.1(H) <30 ug/mg cr [facility] Comment:Albumin/Creatinine R atio Reference Ranges: Normal: < 30 ug/mg creatinine Microalbuminuria: 30 - 300 ug/mg creatinineClinical Albuminuria: > 300 ug/mg creatinine Urine (Urine, Random) 06/26/2024 8:48 AM EDT 06/26/2024 2:07 PM EDT Dillon Sanders MD LAB URINE ORDERABL ES Final Result [facility] [address] [place], [place] [phone] * Cologuard?? colon cancer screening (06/17/2023 12:01 AM EDT) Cologuard Result Negative Negative 06/22/20 10:05 AM EDT [employer] (CLIA #:[id number]) Comment: NEGATIVE TEST RESULT. A negative Cologuard result indicates a low likelihood that a colorectal cancer (CRC) or advanced adenoma (adenomatous polyps with more advanced pre-malignant features) is present. The chance that a person with a negative Cologuard test has a colorectal cancer is less than 1 in 1500 (negative predictive value >99.9%) or has an advanced adenoma is less than 5.3% (negative predictive value 94.7%). These data are based on a prospective cross-sectional study of 10,000 individuals at average risk for colorectal cancer who were screened with both Cologuard and colonoscopy. (Leslie Salinas. et al, N Engl J Med 2014;370(14):3410-5467) The normal value (reference range) for this assay is negative. COLOGUARD RE-SCREENING RECOMMENDATION: Periodic colorectal cancer screening is an important part of preventive healthcare for asymptomatic individuals at average risk for colorectal cancer. Following a negative Cologuard result, the [place] [employer] and U.S. Multi-Society Task Force screening guidelines recommend a Cologuard re-screening interval of 3 years. References: [place] [employer] Guideline for Colorectal Cancer Screening: https://www.cancer.org/cancer/mbnpa-brrqgp-fbqaud/rmchhtuje-vomfbyvxy-dqsvurj/ac s-rec ommendations.html.; Meño PERRY, Eusebia PONCE, Herminio CisnerosK, Colorectal Cancer Screening: Recommendations for Physicians and Patients from the U.S. Multi-Society Task Force on Colorectal Cancer Screening , Am J Gastroenterology 2017; 112:4342-2932. TEST DESCRIPTION: Composite algorithmic analysis of stool DNA-biomarkers with hemoglobin immunoassay. Quantitative values of individual biomarkers are not reportable and are not associated with individual biomarker result reference ranges. Cologuard is intended for colorectal cancer screening of adults of either sex, 45 years or older, who are at average-risk for colorectal cancer (CRC). Cologuard has been approved for use by the [place] FDA. The performance of Cologuard was established in a cross sectional study of average-risk adults aged 50-84. Cologuard performance in patients ages 45 to 49 years was estimated by sub-group analysis of near-age groups. Colonoscopies performed for a positive result may find as the most clinically significant lesion: colorectal cancer [4.0%], advanced adenoma (including sessile serrated polyps greater than or equal to 1cm diameter) [20%] or non- advanced adenoma [31%]; or no colorectal neoplasia [45%]. These estimates are derived from a prospective cross-sectional screening study of 10,000 individuals at average risk for colorectal cancer who were screened with both Cologuard and colonoscopy. (Leslie Olvera et al, N Engl J Med 2014;370(14):6308-5507.) Cologuard may produce a false negative or false positive result (no colorectal cancer or precancerous polyp present at colonoscopy follow up). A negative Cologuard test result does not guarantee the absence of CRC or advanced adenoma (pre-cancer). The current Cologuard screening interval is every 3 years. ([place] [employer] and U.S. Multi-Society Task Force). Cologuard performance data in a 10,000 patient pivotal study using colonoscopy as the reference method can be accessed at the following location: www.creads/results. Additional description of the Cologuard test process, warnings and precautions can be found at www.iMotor.comrd.com. Stool specimen (specimen) 06/17/2023 12:01 AM EDT 06/19/2023 12:01 AM EDT Dillon Sanders MD LAB MOLECULAR DIAG NOSTICS ORDERABLES Final Result [employer] (CLIA #:[id number]) [address] [place], [place] [address] [phone] * HEPATITIS C AB W/REFL TO HCV RNA, QN, PCR (06/28/2022 8:38 AM EDT) HEPATITIS C ANTIBODY NON-REACTI VE NON-REACT LAURY CONVERTED LEGACY LABS INDEX 0.06 <1.00 CONVERTED LEGACY LABS Comment: HCV antibody was non-reactive. There is no laboratory evidence of HCV infection. In most cases, no further action is required. However, if recent HCV exposure is suspected, a test for HCV RNA (test code 87107) is suggested. For additional information please refer to http://education.Kaseya/faq/WHN44s2 (This link is being provided for informational/ educational purposes only.) 06/28/2022 8:38 AM EDT Dillon Sanders MD HISTORICAL/NON ORD ERABLE LABS Final Result Performing Organization Address [facility] [place] de Phone Number [facility] * HIV AB/AG (10/13/2019 3:41 PM EST) HIV AG/AB NONREACTIVE NR [facility] Comment: HIV-1 p24 Ag and/or HIV-1/HIV-2 Ab not detected. A test result that is nonreactive does not exclude the possibility of exposure to or infection with HIV-1 and/or HIV-2. Nonreactive results in this assay for individuals with prior exposure to HIV-1 and/or HIV-2 may be due to antigen and antibody levels that are below the limit of detection of this assay. The [facility] HIV Ag/Ab Combo assay result and supplemental assay results should be interpreted in conjunction with the patient's clinical presentation, history and other laboratory results. If the results are inconsistent with clinical evidence, additional testing is suggested to confirm the result. 10/13/2019 3:41 PM EST Dillon Sanders MD HISTORICAL/NON ORD ERABLE LABS Final Result Performing Organization Address [facility] [place] de Phone Number [facility] [address] from Last 3 Months or Most Recently Relevant to Health Maintenance Insurance [place] [facility] C3 * Guarantor: Sabiha Laguerre Account Type Relation to Patient Date of Phone Billing Address Personal/Family Self [facility] [place] * Guarantor: Shade, Sabiha Account Type Relation to Patient Date of Phone Billing Address Personal/Family Self [place], [place] * Guarantor: Tony Laguerremen Account Type Relation to Patient Date of Phone Billing Address Personal/Family Self [place] Care Teams Olap Developer Relationship Specialty Start Date End Date Dillon Thomson MD [address] [place] [id number] PCP - General Internal Medicine 10/13/19 Sola 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
== END 2025-09-07 13:22 | disposition home or self-care (01) ==
PROVIDERS: PCP Internal Medicine; Visit Provider Nurse Practitioner Family
DX: I25.10 Atherosclerotic heart disease of native coronary artery without angina pectoris (principal); Z95.5 Presence of coronary angioplasty implant and graft; I65.29 Occlusion and stenosis of unspecified carotid artery; I73.9 Peripheral vascular disease, unspecified; E78.5 Hyperlipidemia, unspecified
CPT/HCPCS: 93010; 99214

== ENCOUNTER → 2025-09-07 12:23 | Outpatient (BNVA) | payer MEDICAID, SELFPAY | PROVIDERS: Visit Provider Nurse Practitioner Family | DX: I25.10 Atherosclerotic heart disease of native coronary artery without angina pectoris (principal); I10 Essential (primary) hypertension; I65.22 Occlusion and stenosis of left carotid artery; I73.9 Peripheral vascular disease, unspecified; E78.5 Hyperlipidemia, unspecified | CPT/HCPCS: 93005; 99212 ==